=== PATIENT | female | born 2000 | race Caucasian/White ===

== ENCOUNTER 2023-10-25 18:16 | Emergency (ER) | payer OTHER, SELFPAY ==
--- NOTE | ~2023-10-25 | XR_ITS ---
EXAMINATION: XR chest 2V Exam Date/Time: 10/25/2023 20:45 DOCK OPERATOR HISTORY: cough, eval for PNA Comparison: None. RESULT: Lines, tubes, and devices: None. Lungs and pleura: Clear. Cardiomediastinal silhouette: Normal. Other: No acute osseous or upper abdominal finding. IMPRESSION: No acute cardiopulmonary process. Reviewed, dictated and finalized at location K. OPERATOR
[2023-10-25 18:47] VITALS: BP 122/91; PULSE 105; RESP 20; TEMP 38.4; O2SAT 100
[2023-10-25 20:04] VITALS: TEMP 38.2
--- NOTE | 2023-10-25 20:18 | PC.NURSE ---
called lab to check the status of PCR test. refrigeration service technician states it errored out, ill put it back on, it will be 30-45 mins
--- NOTE | 2023-10-25 20:42 | ED.URI ---
HPI - URI/Sore Throat General Chief Complaint: Upper Respiratory Infection Stated Complaint: sick for 2 weeks Time Seen by Provider: 10/25/23 20:14 History of Present Illness HPI Narrative: 23-year-old female presenting with URI symptoms. Patient states that for last 2 weeks she has had sore throat, cough, body aches. She was seen at urgent care about 2 weeks ago and given a Z-Blake. She finished this and her throat improved. She continues to have a sore throat and body aches. States she has been intermittently nauseated with vomiting. States that she has chest pain with coughing. No shortness of breath or abdominal pain. No leg swelling. Has been using Tylenol with temporary relief. Related Data Allergies Allergy/AdvReac Type Severity Reaction Status Date / Time No Known Allergies Allergy Unverified 10/25/23 18:16 Review of Systems Review of Systems: All systems reviewed & are unremarkable except as noted in HPI and below Exam Narrative: GENERAL: Well-appearing, in no acute distress, pleasant cooperative HEAD: Normocephalic, atraumatic. EYES: PERRLA and EOMI. ENT: Mucous membranes moist. no pharyngeal edema, erythema, or exudates NECK: Supple. CHEST: Clear to auscultation. No respiratory distress. HEART: tachycardic, regular rhythm ABDOMEN: Soft, nontender, nondistended EXTREMITIES: Normal range of motion. SKIN: Warm, dry, no rash. NEURO: No focal deficits. Alert and oriented x3. PSYCH: Normal mood and affect. Course Vital Signs Vital signs: Vital Signs Temperature 101.1 F H 10/25/23 18:47 Pulse Rate 105 H 10/25/23 18:47 Respiratory Rate 20 10/25/23 18:47 Blood Pressure 122/91 H 10/25/23 18:47 Pulse Oximetry 100 10/25/23 18:47 Oxygen Delivery Room Air 10/25/23 18:47 Temperature 100.8 F H 10/25/23 20:04 Pulse Rate 98 10/25/23 23:09 Respiratory Rate 18 10/25/23 23:09 Blood Pressure 91/53 L 10/25/23 23:09 Pulse Oximetry 100 10/25/23 23:09 Oxygen Delivery Room Air 10/25/23 23:07 MDM - URI/Sore Throat MDM Narrative Medical decision making narrative: 23-year-old female presenting with URI symptoms. Patient is slightly tachycardic and febrile on arrival. positive for influenza A. Chest x-ray without acute abnormalities. UA is concerning for UTI. Will treat with Keflex. Discussed appropriate supportive care. Advised PCP follow-up. Appropriate return precautions given. Patient discharged in stable condition. Differential Diagnosis Differential diagnosis: Likely upper respiratory infection, viral infection and influenza Medical Records Attestation: I reviewed the patient's medical records. Lab Data Attestation: I reviewed the patient's lab results. Labs: Lab Results 10/25/23 10/25/23 Range/Units 18:52 21:03 Urine Color Yellow (Yellow) Urine Appearance Clear (Clear) Urine pH 6.0 (5.0-9.0) Ur Specific [place] >= 1.030 (1.001-1.035) Urine Protein Negative (Negative) mg/dL Urine Glucose (UA) Negative (Negative) mg/dL Urine Ketones Negative (Negative) mg/dL Ur Blood (Man) 1+ H (Negative) Urine Nitrate Positive H (Negative) Urine Bilirubin Negative (Negative) Urine Urobilinogen 0.2 (<2.0) mg/dL Leukocyte Esterase Rfl Negative (Negative) [place]/UL Urine RBC 3-5 H (0-2) /hpf Urine WBC 0-3 (0-3) /hpf Ur Squamous Epith Cells Moderate H (Few) /hpf Calcium Oxalate Crystal Present H (None) /hpf Urine Bacteria 3+ H (None) /hpf Urine Mucus Few H /lpf Influenza A (RT-PCR) Positive A (Negative) Influenza B (RT-PCR) Negative (Negative) RSV (RT-PCR) Negative (Negative) SARS-CoV-2 RNA (RT-PCR) Negative (Negative) Imaging Data Radiologist's impression: ITS Impressions Chest X-Ray 10/25/23 20:59 IMPRESSION: No acute cardiopulmonary process. Critical Care Time Critical Care Time Critical Care Time: No Discharge Plan Discharge
[2023-10-25 20:56] LABS: Influenza A QL RT-PCR Positive (Negative); Influenza B QL RT-PCR Negative (Negative); RSV RNA, RT-PCR Negative (Negative); SARS-CoV-2 RNA PCR Negative (Negative)
[2023-10-25] MEDS: ONDANSETRON HCL ODT 4 MG TABLET PO (20:56)
[2023-10-25] MEDS: KETOROLAC 30 MG/ML VIAL (*BKC) IM (20:56)
[2023-10-25 22:04] LABS: Add Urine Microscopic? YES
[2023-10-25 22:05] LABS: Calcium Oxalate Crystals Urine Present /hpf
[2023-10-25 22:06] LABS: Bacteria Urine 3+ /hpf; Mucus Urine Few /lpf; Squamous Epithelial Cell Urine Moderate /hpf (Few)
[2023-10-25 22:07] LABS: Appearance Urine Clear (Clear); Color Urine Yellow (Yellow); WBC Urine 0-3 /hpf (0-3)
[2023-10-25 22:08] LABS: Bilirubin Urine Negative (Negative); Blood Urine 1+ (Negative); Glucose Urine UA Negative (Negative); Ketones Urine Negative (Negative); Nitrate Urine Positive (Negative); Protein Urine Negative (Negative); Specific Grav Ur >= 1.030 (1.001-1.035); Urobilinogen Urine 0.2 mg/dL (<2.0)
[2023-10-25 22:09] LABS: Leukocyte Esterase Ur Negative LEU/UL (Negative)
[2023-10-25] MEDS: CEPHALEXIN 500 MG CAPSULE PO (22:18)
[2023-10-25 23:07] VITALS: O2SAT 100
[2023-10-25 23:09] VITALS: BP 91/53; PULSE 98; RESP 18; O2SAT 100
== END 2023-10-25 23:11 | disposition home or self-care (01) ==
PROVIDERS: Emergency Provider Emergency Medicine
DX: J10.1 Influenza due to other identified influenza virus with other respiratory manifestations (principal); N39.0 Urinary tract infection, site not specified; Z20.822 Contact with and (suspected) exposure to COVID-19
CPT/HCPCS: 71046; 81001; 87637; 96372; 99283; A9270; J1885

== ENCOUNTER 2024-12-20 15:05 | Outpatient (CLI) | payer MEDICAID, SELFPAY ==
[2024-12-20 15:33] LABS: Basophils Percent Auto 0.2 % (0.2-1.2); Eosinophils Absolute Auto 0.1 K/mm3 (0-0.3); Eosinophils Percent Auto 0.6 % (0-4.4); Hematocrit 39.2 % (37.0-47.0); Hemoglobin 12.6 g/dL (12.0-15.0); Immature Granulocyte Absolute 0.06 K/mm3 (0.00-0.031); Immature Granulocyte Percent A 0.4 % (0-0.5); Lymphocytes Absolute Auto 1.37 K/mm3 (0.9-3.2); Mean Corpuscular HGB Conc 32.1 g/dl (32-36); Mean Corpuscular Hemoglobin 28.3 pg (26-34); Mean Corpuscular Volume 87.9 fl (80-100); Mean Platelet Volume 9.8 fl (7.4-10.4); Monocytes Absolute Auto 0.8 K/mm3 (0.1-0.6); Neutrophils Absolute Auto 11.3 K/mm3 (1.3-6.7); Neutrophils Percent Auto 82.8 % (45.5-73.1); Platelet Count Result 385 k/mm3 (150-375); Red Blood Count 4.46 M/mm3 (4.2-5.4); Red Cell Distribution Width 13.2 % (11.5-14.5); White Blood Count 13.7 K/mm3 (4.5-10.0)
--- OUTSIDE RECORDS SUMMARY | 2024-12-20 16:19 | XMS_ITS | Clinical Summary ---
Author Organization [facility] Address [address] [place] [id number] Care Team Providers Care Senior Receptionist Name Role Phone None, Provider MD Primary Care Provider Unavaila ble Allergies No known active allergies Medications No known medications Encounters Date Type Department Care Team Description 12/18/2024 12:11 AM STONE RUBBER - 12/18/2024 2:59 AM STONE RUBBER Emergency [facility] [place] [address] Flako Haynes MD,PHD Abdominal Pain Discharge Disposition: Home or Self Care (Routine Discharge) 12/17/2024 Travel from Last 3 Months Social History Tobacco Use Types Packs/Day Years Used Date Smoking Tobacco: Never Assessed Comments Yes Sex and Gender Information Value Date Recorded Sex Assigned at Female 12/17/2024 11:45 PM STONE RUBBER Legal Sex Female 11:35 PM STONE RUBBER Gender Identity Not on file Sexual Orientation Not on file Last Filed Vital Signs Vital Sign Reading Time Taken Comments Blood Pressure 136/88 12/18/2024 2:58 AM STONE RUBBER Pulse 115 12/18/2024 2:58 AM STONE RUBBER Temperature 36.9 C (98.5 F) 12/17/2024 11:39 PM STONE RUBBER Respiratory Rate 17 12/18/2024 2:58 AM STONE RUBBER Oxygen Saturation 97% 12/18/2024 2:58 AM STONE RUBBER Inhaled Oxygen Concentration - - Weight 54.9 kg (121 lb 0.5 oz) 12/17/2024 11:39 PM STONE RUBBER Height 160 cm (5' 3 ) 12/17/2024 11:39 PM STONE RUBBER Body Mass Index 21.44 12/17/2024 11:39 PM STONE RUBBER Plan of Treatment Health Maintenance Due Date Last Done Comments Annual Physical 2001 HPV Vaccines (1 - 3-dose series) 2013 Hepatitis C 2016 DTaP, Tdap and Td Vaccines ( 1 - Tdap) 2017 Hepatitis B Vaccines (1 of 3 - 19+ 3-dose series) 2017 COVID-19 Vaccine ( - 2023-2 5 season) 2024 Influenza Adult (#1) 2024 Cervical Cancer Screening Pa p Smear (Age 21 to 29) Every 3 Years 06/28/2025 06/28/2022 Cervical Cancer Screening 06/28/2025 RSV Immunization or 60+ Years (1 - 1-dose 75+ series) 2073 Meningococcal B Vaccine Aged Out No l onger eligible based on patient's age to complete this topic Meningococcal Vaccine Aged Out No viki quang eligible based on patient's age to complete this topic Pneumococcal Vaccine: Pediat rics (0 to 5 Years) and At-Risk Patients (6 to 64 Years) Aged Out No longer eligi ble based on patient's age to complete this topic RSV Immunizations Under 20 Months Aged Out No longer eligible based on patient's age to complete this topic Procedures Procedure Name Priority Date/Time Associated Diagnosis Comments US OB TRANSVAG STAT 12/18/2024 1:59 AM STONE RUBBER POCT URINE (BACK OFFICE) STAT 12/18/2024 12:43 AM STONE RUBBER HC URINALYSIS AUTO W/O MICRO STAT 12/18/2024 12:35 AM STONE RUBBER HCG QUANT (SERUM)-CHORIONIC GONADOTROPIN STAT 12/18/2024 12:28 AM STONE RUBBER COMPREHENSIVE METABOLIC PANEL STAT 12/18/2024 12:28 AM STONE RUBBER CBC W/DIFF AUTOMATED STAT 12/18/2024 12:28 AM STONE RUBBER TYPE & SCREEN STAT 12/18/2024 12:27 AM STONE RUBBER from Last 3 Months Results * US OB TRANSVAG (12/18/2024 1:59 AM STONE RUBBER) Anatomical Region Laterality Modality Abdomen, Pelvis Ultrasound 12/18/2024 2:23 AM STONE RUBBER Impressions 12/18/2024 2:24 AM STONE RUBBER IMPRESSION: 1. Single living intrauterine gestation at gestational age of 7 weeks 0 days and EDC of 06 Aug 2025. 2. Probable moderate volume subchorionic hemorrhage. Referred By: Interpreted By: Galen Gonzales MD, 12/18/2024 2:23 AM Narrative 12/18/2024 2:[address] STONE RUBB[address] [address] EXAM: Early OB (<14 weeks) sonography INDICATION: Sudden onset pelvic pain COMPARISON: None LMP: 31 Oct 2024. Quantitative Beta-hC,019. FINDINGS: Layton scale and color Doppler transpelvic and transvaginal sonography was performed and demonstrates a gravid uterus measuring 8.6 x 5.2 x 6.7 cm. The uterus contains a typical appearing gestational sac with definable embryonic pole. Spontaneous heart rate of 136 beats per minute is demonstrated. Anechoic regions adjacent to the gestational sac compatible with moderate volume subchorionic hemorrhage. A yolk sac is visualized and measures 0.3 cm in diameter. [place] rump length measures 0.9 cm, correlating with gestational age of 7 weeks 0 days and EDC of 06 Aug 2025. Ovaries are normal in size measuring 4.1 x 2.4 x 3.2 cm on the right and 3.8 x 1.4 x 1.9 cm on the left. Probable corpus luteum in the right ovary. 1.9 cm isoechoic focus in the right adnexa with low-level internal echoes and mild through transmission, compatible with an endometrioma. Ovarian arterial flow is within normal limits. Small volume free fluid in the pelvic cul-de-sac. Procedure Note Galen Gonzales MD - 12/18/[address] [address] EXAM: Early OB (<14 weeks) sonography INDICATION: Sudden onset pelvic pain COMPARISON: None LMP: 31 Oct 2024. Quantitative Beta-hC,019. FINDINGS: Layton scale and color Doppler transpelvic and transvaginal sonography wasperformed and demonstrates a gravid uterus measuring 8.6 x 5.2 x 6.7 cm.The uterus contains a typical appearing gestational sac with definableembryonic pole. Spontaneous heart rate of 136 beats per minute isdemonstrated. Anechoic regions adjacent to the gestational sac compatiblewith moderate volume subchorionic hemorrhage. A yolk sac is visualized and measures 0.3 cm in diameter. [place] rump length measures 0.9 cm, correlating with gestational age of 7weeks 0 days and EDC of 06 Aug 2025. Ovaries are normal in size measuring 4.1 x 2.4 x 3.2 cm on the right and3.8 x 1.4 x 1.9 cm on the left. Probable corpus luteum in the right ovary.1.9 cm isoechoic focus in the right adnexa with low-level internal echoesand mild through transmission, compatible with an endometrioma. Ovarianarterial flow is within normal limits. Small volume free fluid in thepelvic cul-de-sac. IMPRESSION: 1. Single living intrauterine gestation at gestational age of 7 weeks 0days and EDC of 06 Aug 2025. 2. Probable moderate volume subchorionic hemorrhage. Referred By: Interpreted By: Galen Gonzales MD, 12/18/2024 2:23 AM Flako Haynes MD,PHD ULTRASOUND Final Resu lt * (ABNORMAL) POCT urine (12/18/2024 12:43 AM STONE RUBBER) URINE HCG TEST POSITIVE(A ) Internal Control: VALID us Edison Joseph PA-C POINT OF CARE TEST ORDERABL ES Final Result * (ABNORMAL) URINALYSIS (12/18/2024 12:35 AM STONE RUBBER) SPECIMEN TYPE URINE CLEAN CATCH 12/18/2024 12:28 AM STONE RUBBER [facility] COLOR (U) LIGHT YELLOW 12/18/2024 1:[address] [facility] TRANSPARENCY TURBID 12/18/2024 1:[address] [facility] SPECIFIC GRAVITY (U) 1.019 1.001 - 1.030 12/18/2024 1:[address] [facility] U PH 6.0 5.0 - 9.0 12/18/2024 1:[address] [facility] LEUKOCYTES (U) NEGATIVE NEGATIVE 12/18/2024 1:[address] [facility] NITRITES NEGATIVE NEGATIVE 12/18/2024 1:[address] [facility] PROTEIN RANDOM (U) NEGATIVE <30 MG/DL 12/18/2024 1:[address] [facility] GLUCOSE (U) NORMAL NORMAL MG/DL 12/18/2024 1:[address] [facility] KETONES MG/DL (U) TRACE(A) NEGATIVE MG/DL 12/18/2024 1:[address] [facility] UROBILINOGEN NORMAL NORMAL MG/DL 12/18/2024 1:[address] [facility] BILIRUBIN (U) NEGATIVE NEGATIVE MG/DL 12/18/2024 1:[address] [facility] BLOOD (U) NEGATIVE NEGATIVE 12/18/2024 1:[address] [facility] URINE SPECIMEN OBTAINED BY CLEAN CATCH PROCEDURE / Unknown 12/18/2024 12:35 AM STONE RUBBER us Edison Joseph PA-C URINE ORDERABLES Final Resu lt [facility] [address] [place] [address], [place] [phone] * (ABNORMAL) COMPREHENSIVE METABOLIC PANEL (12/18/2024 12:28 AM [facility]) [facility] GLUCOSE 95 70 - 99 MG/DL 12/18/2024 1:[address] [facility] BUN 9 7 - 18 MG/DL 12/18/2024 1:[address] [facility] CREATININE S/P/B 0.57 0.55 - 1.02 MG/DL 12/18/2024 1:[address] [facility] SODIUM S/P/B 136 136 - 145 MMOL/L 12/18/2024 1:[address] [facility] POTASSIUM S/P/B 3.5 3.5 - 5.1 MMOL/L 12/18/2024 1:[address] [facility] CHLORIDE S/P/B 105 97 - 115 MMOL/L 12/18/2024 1:[address] [facility] CO2 23.1 21 - 32 MMOL/L 12/18/2024 1:[address] [facility] CALCIUM S/P/B 9.5 8.5 - 10.1 MG/DL 12/18/2024 1:[address] [facility] BILIRUBIN TOTAL S/P/B 0.6 0.2 - 1.2 MG/DL 12/18/2024 1:[address] [facility] Comment: THIS ASSAY IS NOT RECOMMENDED FOR PATIENTS UNDERGOING TREATMENT WITH ELTROMBOPAG DUE TO THE POTENTIAL FOR FALSELY ELEVATED RESULTS. TOTAL PROTEIN S/P/B 7.4 6.4 - 8.2 G/DL 12/18/2024 1:[address] [facility] ALBUMIN S/P/B 4.1 3.4 - 5.0 G/DL 12/18/2024 1:[address] [facility] AST 9(L) 15 - 37 U/L 12/18/2024 1:[address] [facility] ALT 12(L) 14 - 55 U/L 12/18/2024 1:[address] [facility] ALKALINE PHOSPHATASE S/P/B 64 50 - 136 U/L 12/18/2024 1:[address] [facility] ANION GAP 7.9 2 - 10 MMOL/L 12/18/2024 1:[address] [facility] BUN CREATININE RATIO 15.7 6 - 26 12/18/2024 1:[address] [facility] A/G RATIO 1.2 1.0 - 2.0 RATIO 12/18/2024 1:[address] [facility] GFR ESTIMATE >90 >90 ML/MIN/1.7 3 M2 12/18/2024 1:[address] [facility] Comment: NOTE: eGFR is not calculated for patients <18 years of age or gender unknown. This is an estimated GFR calculation using the new CKD EPI creatinine equation without race and so does not require a correction factor for race. This estimated GFR should not be used for calculating drug doses. 12/18/2024 12:2 8 AM STONE RUBBER Edison Joseph PA-C LABORATORY Final Resul t [facility] [address] [place] [address], * HCG QUANT (SERUM)-CHORIONIC GONADOTROPIN (12/18/2024 12:28 AM STONE RUBBER) Pathologist [facility] [place] HCG QUANTITATIVE 54,019 MIU/ML 12/19/19 1:[address] [facility] Comment: WEEKS OF REFERENCE RANGES Non- female < or = 2 0.2 - 1 5 - 50 1 - 2 50 - 500 2 - 3 100 - 5000 3 - 4 500 - 10,000 4 - 5 1000 - 50,000 5 - 6 10,000 - 100,000 6 - 8 15,000 - 200,000 2 - 3 MONTHS 10,000 - 100,000 12/18/2024 12:2 8 AM STONE RUBBER Edison Joseph PA-C LABORATORY Final Resul t [facility] [address] [place] [address], * (ABNORMAL) CBC W/DIFF AUTOMATED (12/18/2024 12:28 AM STONE RUBBER) WBC 11.56(H) 4.5 - 11.0 x10'3/uL 12/18/2024 1:18 AM STONE RUBBER [facility] RBC 4.55 4.20 - 5.40 x10'6/uL 12/18/2024 1:18 AM STONE RUBBER [facility] HGB 12.8 12.0 - 16.0 G/DL 12/18/2024 1:18 AM STONE RUBBER [facility] HCT 38.9 38.0 - 48.0 % 12/18/2024 1:[address] [facility] MCV 85.5 81.0 - 99.0 FL 12/18/2024 1:18 AM STONE RUBBER [facility] MCH 28.1 27.0 - 31.0 PG 12/18/2024 1:18 AM STONE RUBBER [facility] MCHC 32.9 32.0 - 36.0 G/DL 12/18/2024 1:18 AM STONE RUBBER [facility] RDW 13.2 11.5 - 14.5 % 12/18/2024 1:[address] [facility] PLT 426(H) 130 - 400 x10'3/uL 12/18/2024 1:18 AM STONE RUBBER [facility] MPV 10.2 9.3 - 12.2 FL 12/18/2024 1:[address] [facility] DIFFERENTIAL TYPE AUTOMATED DIFFERENTIAL 12/18/2024 1:[address] [facility] NEUTROPHILS % 68.8 % 12/18/2024 1:[address] [facility] LYMPHOCYTES % 20.8 % 12/18/2024 1:[address] [facility] MONOCYTES % 8.5 % 12/18/2024 1:[address] [facility] EOSINOPHILS 1.3 % 12/18/2024 1:[address] [facility] BASOPHILS 0.3 % 12/18/2024 1:[address] [facility] IMMATURE GRANS % 0.3 % 12/19/19 1:[address] [facility] ABS. NEUTROPHILS 7.95(H) 1.80 - 7.70 x10'3/uL 12/18/2024 1:[address] [facility] ABS. LYMPHOCYTES 2.41 1.00 - 4.80 x10'3/uL 12/18/2024 1:[address] [facility] ABS. MONOCYTES 0.98(H) 0.24 - 0.86 x10'3/uL 12/18/2024 1:[address] [facility] ABS. EOSINOPHILS 0.15 0.04 - 0.36 x10'3/uL 12/18/2024 1:[address] [facility] ABS. BASOPHILS 0.03 0.01 - 0.08 x10'3/uL 12/18/2024 1:[address] [facility] ABS. IMMATURE GRANULOCYTES 0.04 0.00 - 0.49 x10'3/uL 12/18/2024 1:[address] [facility] 12/18/2024 12:2 8 AM STONE RUBBER Edison Joseph PA-C LABORATORY Final Resul t [facility] [address] [place] [address], [place] [phone] * TYPE & SCREEN (12/18/2024 12:27 AM STONE RUBBER) ABO/RH O POSITIVE 12/18/2024 1:29 AM STONE RUBBER [facility] ANTIBODY SCREEN NEGATIVE 12/18/2024 1:29 AM STONE RUBBER [facility] SAMPLE EXPIRATION 12/21/2024,2 359 12/18/2024 1:29 AM STONE RUBBER [facility] 12/18/2024 12:2 7 AM STONE RUBBER Flako Haynes MD,PHD BLOOD BANK TEST ORDERABLES Final Result [facility] [address] [place] [address], [place] [phone] from Last 3 Months Insurance MEDICAID Care Teams Senior Receptionist Relationship Specialty Start Date End Date None, Provider, MD PCP - General UNKNOWN PHYSICIAN SPECIALTY 12/18/24
--- OUTSIDE RECORDS SUMMARY | 2024-12-20 16:19 | XMS_ITS | Clinical Summary ---
Author Organization [facility] Address [address] [place] [address] Care Team Providers Care Development Officer Name Role Phone Unavailable Primary Care Provider Unavailabl e Allergies No known active allergies Medications amoxicillin-clav ulanate (AUGMENTIN) 875-125 mg tablet Take 1 Tablet by mouth every 12 hours. 14 Tablet 03/20/2021 Active ibuprofen (MOTRIN) 600 mg tablet Take 1 Tablet (600 mg) by mouth every 8 hours as needed for Pain, Mild. 20 Tablet 06/28/2022 Active phenazopyridine 200 mg tablet Take 1 Tablet (200 mg) by mouth 3 times daily as needed for Pain. 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 Encounters Date Type Department Care Team Description 12/05/2024 External Device Data [facility] ABSTRACTION Provider, Abstract 11/08/2024 External Device Data [facility] ABSTRACTION Provider, Abstract from Last 3 Months Social History Tobacco Use Types Packs/Day Years Used Date Smoking Tobacco: Never Tobacco Cessation:Counseling Given: Not Answered Alcohol Use Standard Drinks/Week Comments Yes 0 (1 standard drink = 0.6 oz pur e alcohol) Comments No Sex and Gender Information Value Date Recorded Sex Assigned at Not on file Legal Sex Female 10:16 AM CDT Gender Identity Not on file Sexual Orientation Not on file Last Filed Vital Signs Vital Sign Reading Time Taken Comments Blood Pressure 113/77 06/21/2024 7:44 PM CDT Pulse 82 06/21/2024 7:44 PM CDT Temperature 36.8 C (98.2 F) 06/21/2024 7:44 PM CDT Respiratory Rate 18 06/21/2024 7:44 PM CDT Oxygen Saturation 98% 06/21/2024 7:44 PM CDT Inhaled Oxygen Concentration - - Weight 57.2 kg (126 lb) 06/21/2024 7:44 PM CDT Height 160 cm (5' 3 ) 06/21/2024 7:44 PM CDT Body Mass Index 22.32 06/21/2024 7:44 PM CDT Plan of Treatment Health Maintenance Due Date Last Done Comments HPV VACCINES (1 - 3-dose series) 2013 DTAP/TDAP/TD VACCINES (1 - Tdap) 2017 HEPATITIS B VACCINES (1 of 3 - 19+ 3-dose series) 11/2016 CERVICAL CANCER SCREENING 2019 INFLUENZA VACCINE (#1) 2024 CHLAMYDIA SCREENING (ANNUAL) 11-24 YEARS Discontinued 06/28/2022 Procedures Procedure Name Priority Date/Time Associated Diagnosis Comments GC/CHLAMYDIA, UROGENITAL Stat 06/28/2022 12:06 PM CDT from Last 3 Months or Most Recently Relevant to Health Maintenance Results * GC/CHLAMYDIA, UROGENITAL (06/28/2022 12:06 PM CDT) CHLAMYDIA DNA AMPLIFICATION NOT DETECTED Not Detected 06/30/2022 11:46 AM CDT [facility] GC DNA AMPLIFICATION NOT DETECTED Not Detected 06/30/2022 11:46 AM CDT [facility] Genital SWAB OF ENDOCERVIX / Unknown Collection / Unknown 06/28/2022 12:06 PM CDT 06/28/2022 12:15 PM CDT Narrative [facility] - 06/30/2022 11:46 AM CDT Results should not be used for the evaluation of suspected sexual abuse or for other medico-legal indications. The only legally accepted results are from culture. Results cannot be used to assess therapeutic success or failure since nucleic acids may persist following antimicrobial therapy. Mali Leal MD MICROBIOLOGY - GENERAL ORDERABL ES Final Result [facility]# [id number] [address] [place] [id number] from Last 3 Months or Most Recently Relevant to Health Maintenance Insurance [email or web address] [id number]
--- OUTSIDE RECORDS SUMMARY | 2024-12-20 16:19 | XMS_ITS | Clinical Summary ---
Author Organization [facility] Address [address] [place] [address] Care Team Providers Care Nurses' Registry Director Name Role Phone Unknown, Notinfile Primary Care Provider Unavail able Allergies No known active allergies Medications No known medications Active Problems Problem Noted Date Diagnosed Date Calculus of kidney 01/24/2014 Social History Tobacco Use Types Packs/Day Years Used Date Smoking Tobacco: Never Assessed Personal Safety Answer Date Recorded Getting School Help Needed Not on file 04/23 Comments Unknown Sex and Gender Information Value Date Recorded Sex Assigned at Not on file Legal Sex Female 9:54 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 Gender Identity Not on file Sexual Orientation Not on file Last Filed Vital Signs Vital Sign Reading Time Taken Comments Blood Pressure 135/86 04/23/2023 5:50 PM CDT Pulse 89 04/23/2023 5:50 PM CDT Temperature 37.2 C (99 F) 04/23/2023 4:07 PM CDT Respiratory Rate 16 04/23/2023 5:50 PM CDT Oxygen Saturation 98% 04/23/2023 5:50 PM CDT Inhaled Oxygen Concentration - - Weight 57.2 kg (126 lb) 04/23/2023 4:07 PM CDT Height 160 cm (5' 3 ) 04/23/2023 4:07 PM CDT Body Mass Index 22.32 04/23/2023 4:07 PM CDT Plan of Treatment Health Maintenance Due Date Last Done Comments Cervical Cancer Screening 1998 Depression Screening 1998 Hepatitis C Screening 1998 Regular Well Visit/Exam 18-64 2016 DTaP/Tdap/Td Vaccine (7 - Td or Tdap) 12/26/2021 12/27/2011, 06/08/2009, 02/02/2000, Additional history exists Influenza Vaccine (#1) 2024 4, 12/06/2013, 07/13/2011 Hepatitis B Screening Completed 05/06/1999 , 1998, 1998 Pneumococcal vaccine <65 Completed 09/16/2000 Varicella Vaccines Completed 02/09/2010, 12/03/1999 HPV Vaccines Completed 12/27/2011, 06/18, 02/09/2010 Insurance [facility] [employer] [facility] [employer] Care Teams Nurses' Registry Director Relationship Specialty Start Date End Date Unknown, Notinfile PCP - General 04/12/22
--- OUTSIDE RECORDS SUMMARY | 2024-12-20 16:19 | XMS_ITS | Referral Summary ---
Author Organization [facility] Address [address] [place] [address] Care Team Providers Care Senior Hydrogeologist Name Role Phone Unknown, Notinfile Primary Care [...] on file Legal Sex Female 9:54 AM ASSISTANT PROFESSOR IN FAMILY STUDIES Gender Identity Not on file Sexual Orientation [...] 04/23/2023 4:07 PM CDT Plan of Treatment Not on file Insurance [facility] PLUS [facility] PL[facility] Care Teams Senior Hydrogeologist Relationship Specialty Start Date End Date Unknown, Notinfile PCP - General 04/12/22
[2024-12-20 16:34] LABS: HIV 1/2 Ab P24 Ag Result Negative (Negative)
[2024-12-20 17:19] LABS: Syphilis IgG/IgM Antibody Negative (Negative)
[2024-12-20 17:23] LABS: Hepatitis B Surface Antigen Negative (Negative)
[2024-12-21 12:28] LABS: Varicella IgG Antibody <1.00 S/CO
== END 2024-12-20 15:06 | disposition home or self-care (01) ==
LOC: ANHLAB 15:06
PROVIDERS: Visit Provider Student in an Organized Health Care Education/Training Program
DX: N91.2 Amenorrhea, unspecified (principal)
CPT/HCPCS: 36415; 81329; 84702; 85025; 86593; 86644; 86703; 86747; 86762; 86787; 86850; 86900; 86901; 87086; 87340; G0432

== ENCOUNTER 2024-12-27 16:12 | Outpatient (CLI) | payer MEDICAID, SELFPAY ==
--- NOTE | ~2024-12-27 | US_ITS ---
Pelvic ultrasound. Clinical History: First trimester , amenorrhea, establish dates and viability Technique: Realtime transvaginal scanning of the pelvis was performed. Color flow Doppler and Doppler spectral analysis were performed. Findings: The uterus is anteverted, and contains an intrauterine gestation. Meno-rump length of 1.9 cm corresponds to an estimated gestational age of 8 weeks 3 days. heart rate is 175 bpm. Yolk s ac also present. The right ovary measures 3.0 x 2.6 x 3.2 cm. No significant right ovarian or adnexal mass is seen. The left ovary measures 3.2 x 1.4 x 1.9 cm. No significant left ovarian or adnexal mass is seen. There is no evidence of free fluid in the cul de sac. Impression: Live intrauterine gestation, with estimated gestational age of 8 weeks 3 days. heart rate is 17 5 bpm. Sonographic MARTHA is 08/05/2025. Reviewed, dictated and finalized at location . Impression: Live intrauterine gestation, with estimated gestational age of 8 weeks 3 days. heart rate is 175 bpm. Sonographic MARTHA is 08/05/2025.
--- OUTSIDE RECORDS SUMMARY | 2024-12-27 17:34 | XMS_ITS | Clinical Summary ---
Author Organization [facility] Address [address] [place] [address] Care Team Providers Care Field Reporter Name Role Phone None, Provider MD Primary Care Provider Unavaila ble Allergies No known active allergies Medications No known medications Encounters Date Type Department Care Team Description 12/18/2024 12:11 AM DUMPER BAILER OPERATOR - 12/18/2024 2:59 AM DUMPER BAILER OPERATOR Emergency [facility] [place] [address] Flako Haynes MD,PHD Abdominal Pain Discharge Disposition: Home or Self Care (Routine Discharge) 12/17/2024 Travel from Last 3 Months Social History Tobacco Use Types Packs/Day Years Used Date Smoking Tobacco: Never Assessed Comments Yes Sex and Gender Information Value Date Recorded Sex Assigned at Female 12/17/2024 11:45 PM DUMPER BAILER OPERATOR Legal Sex Female 11:35 PM DUMPER BAILER OPERATOR Gender Identity Not on file Sexual Orientation Not on file Last Filed Vital Signs Vital Sign Reading Time Taken Comments Blood Pressure 136/88 12/18/2024 2:58 AM DUMPER BAILER OPERATOR Pulse 115 12/18/2024 2:58 AM DUMPER BAILER OPERATOR Temperature 36.9 C (98.5 F) 12/17/2024 11:39 PM DUMPER BAILER OPERATOR Respiratory Rate 17 12/18/2024 2:58 AM DUMPER BAILER OPERATOR Oxygen Saturation 97% 12/18/2024 2:58 AM DUMPER BAILER OPERATOR Inhaled Oxygen Concentration - - Weight 54.9 kg (121 lb 0.5 oz) 12/17/2024 11:39 PM DUMPER BAILER OPERATOR Height 160 cm (5' 3 ) 12/17/2024 11:39 PM DUMPER BAILER OPERATOR Body Mass Index 21.44 12/17/2024 11:39 PM DUMPER BAILER OPERATOR Plan of Treatment Health Maintenance Due Date [...] US OB TRANSVAG STAT 12/18/2024 1:59 AM DUMPER BAILER OPERATOR POCT URINE (BACK OFFICE) STAT 12/18/2024 12:43 AM DUMPER BAILER OPERATOR HC URINALYSIS AUTO W/O MICRO STAT 12/18/2024 12:35 AM DUMPER BAILER OPERATOR HCG QUANT (SERUM)-CHORIONIC GONADOTROPIN STAT 12/18/2024 12:28 AM DUMPER BAILER OPERATOR COMPREHENSIVE METABOLIC PANEL STAT 12/18/2024 12:28 AM DUMPER BAILER OPERATOR CBC W/DIFF AUTOMATED STAT 12/18/2024 12:28 AM DUMPER BAILER OPERATOR TYPE & SCREEN STAT 12/18/2024 12:27 AM DUMPER BAILER OPERATOR from Last 3 Months Results * US OB TRANSVAG (12/18/2024 1:59 AM DUMPER BAILER OPERATOR) Anatomical Region Laterality Modality Abdomen, Pelvis Ultrasound 12/18/2024 2:23 AM DUMPER BAILER OPERATOR Impressions 12/18/2024 2:24 AM DUMPER BAILER OPERATOR IMPRESSION: 1. Single living intrauterine gestation at gestational age of 7 weeks 0 days and EDC of 06 Aug 2025. 2. Probable moderate volume subchorionic hemorrhage. Referred By: Interpreted By: Galen Gonzales MD, 12/18/2024 2:23 AM Narrative 12/18/2024 2:24 AM DUMPER BAILER OPERATOR [address] [address] EXAM: Early OB (<14 weeks) sonography INDICATION: [...] visualized and measures 0.3 cm in diameter. [place] rump length measures 0.9 cm, correlating with [...] Procedure Note Galen Gonzales MD - 12/18/[address] [address] EXAM: Early OB (<14 weeks) sonography INDICATION: [...] visualized and measures 0.3 cm in diameter. [place] rump length measures 0.9 cm, correlating with [...] * (ABNORMAL) POCT urine (12/18/2024 12:43 AM DUMPER BAILER OPERATOR) URINE HCG TEST POSITIVE(A ) Internal Control: VALID us Edison Joseph PA-C POINT OF CARE TEST ORDERABL ES Final Result * (ABNORMAL) URINALYSIS (12/18/2024 12:35 AM DUMPER BAILER OPERATOR) SPECIMEN TYPE URINE CLEAN CATCH 12/18/2024 12:28 AM DUMPER BAILER OPERATOR [facility] COLOR (U) LIGHT YELLOW 12/18/2024 1:09 AM [facility] TRANSPARENCY TURBID 12/18/2024 1:09 AM [facility] SPECIFIC GRAVITY (U) 1.019 1.001 - 1.030 12/18/2024 1:09 AM [facility] U PH 6.0 5.0 - 9.0 12/18/2024 1:09 AM [facility] LEUKOCYTES (U) NEGATIVE NEGATIVE 12/18/2024 1:09 AM [facility] NITRITES NEGATIVE NEGATIVE 12/18/2024 1:09 AM [facility] PROTEIN RANDOM (U) NEGATIVE <30 MG/DL 12/18/2024 1:09 AM [facility] GLUCOSE (U) NORMAL NORMAL MG/DL 12/18/2024 1:09 AM [facility] KETONES MG/DL (U) TRACE(A) NEGATIVE MG/DL 12/18/2024 1:09 AM [facility] UROBILINOGEN NORMAL NORMAL MG/DL 12/18/2024 1:09 AM [facility] BILIRUBIN (U) NEGATIVE NEGATIVE MG/DL 12/18/2024 1:09 AM [facility] BLOOD (U) NEGATIVE NEGATIVE 12/18/2024 1:09 AM [facility] URINE SPECIMEN OBTAINED BY CLEAN CATCH PROCEDURE / Unknown 12/18/2024 12:35 AM DUMPER BAILER OPERATOR us Edison Joseph PA-C URINE ORDERABLES Final Resu lt [facility] [address] [place] [address], [place] [phone] * (ABNORMAL) COMPREHENSIVE METABOLIC PANEL (12/18/2024 12:28 AM [facility] GLUCOSE 95 70 - 99 MG/DL 12/18/2024 1:27 AM [facility] BUN 9 7 - 18 MG/DL 12/18/2024 1:27 AM [facility] CREATININE S/P/B 0.57 0.55 - 1.02 MG/DL 12/18/2024 1:27 AM [facility] SODIUM S/P/B 136 136 - 145 MMOL/L 12/18/2024 1:27 AM [facility] POTASSIUM S/P/B 3.5 3.5 - 5.1 MMOL/L 12/18/2024 1:27 AM [facility] CHLORIDE S/P/B 105 97 - 115 MMOL/L 12/18/2024 1:27 AM [facility] CO2 23.1 21 - 32 MMOL/L 12/18/2024 1:27 AM [facility] CALCIUM S/P/B 9.5 8.5 - 10.1 MG/DL 12/18/2024 1:27 AM [facility] BILIRUBIN TOTAL S/P/B 0.6 0.2 - 1.2 MG/DL 12/18/2024 1:27 AM [facility] Comment: THIS ASSAY IS NOT RECOMMENDED FOR PATIENTS UNDERGOING TREATMENT WITH ELTROMBOPAG DUE TO THE POTENTIAL FOR FALSELY ELEVATED RESULTS. TOTAL PROTEIN S/P/B 7.4 6.4 - 8.2 G/DL 12/18/2024 1:27 AM [facility] ALBUMIN S/P/B 4.1 3.4 - 5.0 G/DL 12/18/2024 1:27 AM [facility] AST 9(L) 15 - 37 U/L 12/18/2024 1:27 AM [facility] ALT 12(L) 14 - 55 U/L 12/18/2024 1:27 AM [facility] ALKALINE PHOSPHATASE S/P/B 64 50 - 136 U/L 12/18/2024 1:27 AM [facility] ANION GAP 7.9 2 - 10 MMOL/L 12/18/2024 1:27 AM [facility] BUN CREATININE RATIO 15.7 6 - 26 12/18/2024 1:27 AM [facility] A/G RATIO 1.2 1.0 - 2.0 RATIO 12/18/2024 1:27 AM [facility] GFR ESTIMATE >90 >90 ML/MIN/1.7 3 M2 12/18/2024 1:27 AM [facility] Comment: NOTE: eGFR is not calculated for patients <18 years of age or gender unknown. This is an estimated GFR calculation using the new CKD EPI creatinine equation without race and so does not require a correction factor for race. This estimated GFR should not be used for calculating drug doses. 12/18/2024 12:2 8 AM DUMPER BAILER OPERATOR Edison Joseph PA-C LABORATORY Final Resul t [facility] [address] [place] [address], * HCG QUANT (SERUM)-CHORIONIC GONADOTROPIN (12/18/2024 12:28 AM DUMPER BAILER OPERATOR) Pathologist [facility] HCG QUANTITATIVE 54,019 MIU/ML 12/19/19 1:27 AM [facility] Comment: WEEKS OF REFERENCE RANGES Non- [...] 10,000 - 100,000 12/18/2024 12:2 8 AM DUMPER BAILER OPERATOR Edison Joseph PA-C LABORATORY Final Resul t [facility] [address] [place] [address], * (ABNORMAL) CBC W/DIFF AUTOMATED (12/18/2024 12:28 AM DUMPER BAILER OPERATOR) WBC 11.56(H) 4.5 - 11.0 x10'3/uL 12/18/2024 1:18 AM DUMPER BAILER OPERATOR [facility] RBC 4.55 4.20 - 5.40 x10'6/uL 12/18/2024 1:18 AM DUMPER BAILER OPERATOR [facility] HGB 12.8 12.0 - 16.0 G/DL 12/18/2024 1:18 AM DUMPER BAILER OPERATOR [facility] HCT 38.9 38.0 - 48.0 % 12/18/2024 1:18 AM [facility] MCV 85.5 81.0 - 99.0 FL 12/18/2024 1:18 AM DUMPER BAILER OPERATOR [facility] MCH 28.1 27.0 - 31.0 PG 12/18/2024 1:18 AM DUMPER BAILER OPERATOR [facility] MCHC 32.9 32.0 - 36.0 G/DL 12/18/2024 1:18 AM DUMPER BAILER OPERATOR [facility] RDW 13.2 11.5 - 14.5 % 12/18/2024 1:18 AM [facility] PLT 426(H) 130 - 400 x10'3/uL 12/18/2024 1:18 AM DUMPER BAILER OPERATOR [facility] MPV 10.2 9.3 - 12.2 FL 12/18/2024 1:18 AM [facility] DIFFERENTIAL TYPE AUTOMATED DIFFERENTIAL 12/18/2024 1:18 AM [facility] NEUTROPHILS % 68.8 % 12/18/2024 1:18 AM [facility] LYMPHOCYTES % 20.8 % 12/18/2024 1:18 AM [facility] MONOCYTES % 8.5 % 12/18/2024 1:18 AM [facility] EOSINOPHILS 1.3 % 12/18/2024 1:18 AM [facility] BASOPHILS 0.3 % 12/18/2024 1:18 AM [facility] IMMATURE GRANS % 0.3 % 12/19/19 1:18 AM [facility] ABS. NEUTROPHILS 7.95(H) 1.80 - 7.70 x10'3/uL 12/18/2024 1:18 AM [facility] ABS. LYMPHOCYTES 2.41 1.00 - 4.80 x10'3/uL 12/18/2024 1:18 AM [facility] ABS. MONOCYTES 0.98(H) 0.24 - 0.86 x10'3/uL 12/18/2024 1:18 AM [facility] ABS. EOSINOPHILS 0.15 0.04 - 0.36 x10'3/uL 12/18/2024 1:18 AM [facility] ABS. BASOPHILS 0.03 0.01 - 0.08 x10'3/uL 12/18/2024 1:18 AM [facility] ABS. IMMATURE GRANULOCYTES 0.04 0.00 - 0.49 x10'3/uL 12/18/2024 1:18 AM [facility] 12/18/2024 12:2 8 AM DUMPER BAILER OPERATOR Edison Joseph PA-C LABORATORY Final Resul t [facility] [address] [place] [address], [place] [phone] * TYPE & SCREEN (12/18/2024 12:27 AM DUMPER BAILER OPERATOR) ABO/RH O POSITIVE 12/18/2024 1:29 AM DUMPER BAILER OPERATOR [facility] ANTIBODY SCREEN NEGATIVE 12/18/2024 1:29 AM DUMPER BAILER OPERATOR [facility] SAMPLE EXPIRATION 12/21/2024,2 359 12/18/2024 1:29 AM DUMPER BAILER OPERATOR [facility] 12/18/2024 12:2 7 AM DUMPER BAILER OPERATOR Flako Haynes MD,PHD BLOOD BANK TEST ORDERABLES Final Result [facility] [address] [place] [address], [place] [phone] from Last 3 Months Insurance MEDICAID Care Teams Field Reporter Relationship Specialty Start Date End Date None, Provider, MD PCP - General UNKNOWN PHYSICIAN SPECIALTY 12/18/24
--- OUTSIDE RECORDS SUMMARY | 2024-12-27 17:34 | XMS_ITS | Clinical Summary ---
Author Organization [facility] Address [address] [place] [address] Care Team Providers Care Timber Treating Tank Operator Name Role Phone Unavailable Primary Care Provider [...] Encounters Date Type Department Care Team Description 12/25/2024 External Device Data STL ABSTRACTION Provider, Abstract 12/25/2024 External Device Data STL ABSTRACTION Provider, Abstract 12/05/2024 External Device Data STL ABSTRACTION Provider, [...] DETECTED Not Detected 06/30/2022 11:46 AM CDT [facility] [employer] [facility] GC DNA AMPLIFICATION NOT DETECTED Not Detected 06/30/2022 11:46 AM CDT [facility] Genital SWAB OF ENDOCERVIX / Unknown Collection / Unknown 06/28/2022 12:06 PM CDT 06/28/2022 12:15 PM CDT Narrative [facility] - 06/30/2022 11:46 AM CDT Results should not be used for the evaluation of suspected sexual abuse or for other medico-legal indications. The only legally accepted results are from culture. Results cannot be used to assess therapeutic success or failure since nucleic acids may persist following antimicrobial therapy. Mali Leal MD MICROBIOLOGY - GENERAL ORDERABL ES Final Result [facility] [id number] [address] [facility] [place] [id number] from Last 3 Months or Most Recently Relevant to Health Maintenance Insurance [employer] [id number] Member Subscriber Plan / Payer (Ef fective 2021-Present) Name:Chante Reddy Relation to Subscriber:Child Name:ANN-MARIE REDDY Date of :1979 (Home) Address: [address] [place] [address] Payer ID:[id number] (NAIC) Type:O Address: [address] [place] [id number]
--- OUTSIDE RECORDS SUMMARY | 2024-12-27 17:34 | XMS_ITS | Encounter Summary ---
Author Organization [facility] Address [address] [place] [address] Care Team Providers Care Ecological Economist Name Role Phone Unavailable Primary Care Provider Unavailabl e Encounter Details Date Type Department Care Team (Late st Contact Info) Description 12/25/2024 External Device Data ST[facility] ABSTRACTION Provider, Abstract NO ADDRESS ON FILE Social History Tobacco Use Types Packs/Day Years Used Date Smoking Tobacco: Never Alcohol Use Standard Drinks/Week Comments Yes 0 (1 standard drink = 0.6 oz pur e alcohol) Comments No Sex and Gender Information Value Date Recorded Sex Assigned at Not on file Legal Sex Female 10:16 AM CDT Gender Identity Not on file Sexual Orientation Not on file documented as of this encounter Plan of Treatment Not on file documented as of this encounter Visit Diagnoses Not on filedocumented in this encounter
--- OUTSIDE RECORDS SUMMARY | 2024-12-27 17:34 | XMS_ITS | Referral Summary ---
Author Organization [facility] Address [address] [place] [address] Care Team Providers Care Construction Cost Estimator Name Role Phone Unknown, Notinfile Primary Care [...] on file Legal Sex Female 9:54 AM ACCOUNT DEVELOPMENT SPECIALIST Gender Identity Not on file Sexual Orientation [...] Plan of Treatment Not on file Insurance [facility] CHO[facility]US [facility] HMO/PPO Address: [address] [place] [address] [facility] CHOICE [facility]US [facility] HMO/PPO Address: [place] [address] Care Teams Construction Cost Estimator Relationship Specialty Start Date End Date Unknown, Notinfile PCP - General 04/12/22
--- OUTSIDE RECORDS SUMMARY | 2024-12-27 17:34 | XMS_ITS | Clinical Summary ---
Author Organization [facility] Address [address] [place] [address] Care Team Providers Care Storage Garage Attendant Name Role Phone Unknown, Notinfile Primary Care [...] on file Legal Sex Female 9:54 AM SIDEWALK REPAIRER Gender Identity Not on file Sexual Orientation [...] HPV Vaccines Completed 12/27/2011, 06/18, 02/09/2010 Insurance [facility] CHO[facility]US [facility] HMO/PPO Address: [address] [place] [address] [facility] CHO[facility]US [facility] HMO/PPO Address: [address] [address] [place] [address] Care Teams Storage Garage Attendant Relationship Specialty Start Date End Date Unknown, Notinfile PCP - General 04/12/22
== END 2024-12-27 16:13 | disposition home or self-care (01) ==
PROVIDERS: PCP Student in an Organized Health Care Education/Training Program; Visit Provider Student in an Organized Health Care Education/Training Program
DX: N91.2 Amenorrhea, unspecified (principal)
CPT/HCPCS: 76801; 76817

== ENCOUNTER 2025-03-30 11:59 | Emergency (ER) | payer OTHER, SELFPAY ==
--- NOTE | 2025-03-30 12:08 | ED.UPPEXIN ---
HPI - Extremity Injury (Upper) General Chief Complaint: Extremity Injury, Upper Stated Complaint: smashed finger in door Time Seen by Provider: 03/30/25 12:13 Source: patient and RN notes reviewed Mode of arrival: ambulatory Limitations: no limitations History of Present Illness HPI narrative: 24-year-old female presents with concern for injury to the 2nd digit of the right hand. Reports yesterday she smashed the finger in a car door. Reports mid digit pain and stiffness. Reports some bruising. Denies open skin denies decreased strength or sensation. Patient is 5 months complaint: injury to: right and finger Related Data Home Medications ?Medication ?Instructions ?Recorded ?Confirmed ?Last Taken ?Type docosahexaenoic acid 200 mg mg PO 12/19/24 03/12/25 Unknown History capsule ( DHA) Allergies Allergy/AdvReac Type Severity Reaction Status Date / Time No Known Allergies Allergy Verified 03/12/25 16:16 Review of Systems Review of Systems: CONSTITUTIONAL: Denies malaise, chills, sweats, or fever. SKIN: Denies rash or itching, open skin, laceration, abrasion, redness, warmth, swelling. MUSCULOSKELETAL: Reports pain, swelling, bruising his 2nd digit of the right hand NEUROLOGIC: Denies numbness, weakness All systems reviewed & are unremarkable except as noted in HPI and below PMFSH Past Medical History Medical History Amenorrhea Surgical History Surgical History History of removal of ovarian cyst 2018 History of appendectomy Social History Social History Smoking status: Never smoker Alcohol intake: former Substance use: never Substance use type: does not use Do You Feel Safe in your Home?: Yes Lack of Transportation: No Lack of Food: Never True Current Housing: I Have Housing Concerned About Future Housing: No Difficulty Paying Gas/Electric Bills: No Difficulty Paying for Meds: No Currently Unemployed: No Education: High School Diploma/GED Difficulty w/ Childcare or Family Care: No Living arrangements: alone Occupation/Education: occupation Additional occupation/education comments: [employer] Gender identity (if verbalized by the patient): Female Sexual Orientation (if Verbalized by the Patient): Straight or Heterosexual Comments At time of signature, agree with nursing past medical, surgical, social and family history. There is no relevant family history pertinent to the presenting complaint Exam Narrative: GENERAL: Well-appearing, well-nourished, and in no acute distress. HEAD: Normocephalic EYES: PERRLA, conjunctivae clear NECK: Supple. CHEST: Speaks in full sentences. No respiratory distress. HEART: Regular rate and rhythm. Normal and equal peripheral pulses. EXTREMITIES: 2nd digit of right hand has grossly normal strength and sensation. Range of motion limited. No clubbing, cyanosis. Edema ecchymosis, tenderness noted to the mid digit. Skin intact. Normal digital cascade with flexion of fingers, median, ulnar and radial nerve intact. Normal sensation of each side of finger. No scissoring. Normal thumb opposition. Good capillary refill and radial pulse. Distal capillary refill less than 3 seconds. SKIN: Warn, dry, intact, pink. No rash NEURO: Alert and oriented x3. PSYCH: Normal mood and affect Course Course Emergency Course: Discussed benefits versus risks of x-ray at this time. Based on patient's exam, mechanism of injury I feel the risk of x-ray outweigh the benefits at this point. Patient is agreeable. We will splint the finger and she will monitor it. If symptoms worsen she will return for an x-ray. Patient is aware of diagnosis, understands and agrees to treatment plan. Anticipatory guidance given. Patient agrees to follow-up as directed and is aware of reasons to seek care at the emergency department. Portions of this record may have been created with voice recognition software Level of Care: Express Care Visit Vital Signs Vital signs: Reviewed. Critical Care Time Critical Care Time Critical Care Time: No Discharge Plan Discharge Clinical Impression: Finger injury Patient Disposition: Home Condition: Stable Instructions: Crush Injury (ED) Additional Instructions: Avoid activities that cause pain until the pain subsides. Ice to the area 20-30 minutes 4-6 times a day Elevate above heart Orthopedic splint as directed for comfort for the next 5-7 days Tylenol for pain Follow up with your primary care provider or return for x-ray if your symptoms are not improving or getting worse in 3-4 days. If the condition worsens with numbness, tingling, decrease sensation with weakness seek treatment in the emergency room immediately. Patient Language: Kiswahili Prescriptions: No Action DHA 200 mg capsule PO ondansetron HCl 4 mg tablet 4 mg PO Q6H PRN (Reason: nausea and vomiting) Qty: 30 1RF Follow-up/Referrals: Jax Rush MD [Primary Care Provider] - Stand Alone Forms: Work/School Release IP Time of Disposition: 12:22
[2025-03-30 12:10] VITALS: BP 102/65; PULSE 99; RESP 12; TEMP 36.9; O2SAT 100
== END 2025-03-30 12:33 | disposition home or self-care (01) ==
PROVIDERS: Emergency Provider Nurse Practitioner; PCP Student in an Organized Health Care Education/Training Program
DX: O9A.219 Injury, poisoning and certain other consequences of external causes complicating pregnancy, unspecified trimester (principal); Z3A.00 Weeks of gestation of pregnancy not specified; S69.91XA Unspecified injury of right wrist, hand and finger(s), initial encounter; W23.2XXA Caught, crushed, jammed or pinched between a moving and stationary object, initial encounter
CPT/HCPCS: 29130; 99212; G0463

== ENCOUNTER 2025-04-22 02:45 | Observation (INO) | payer OTHER, SELFPAY ==
--- OUTSIDE RECORDS SUMMARY | 2025-04-22 02:41 | XMS_ITS | Clinical Summary ---
Author Organization [facility] Address [address] [place] [address] Care Team Providers Care Rotary Driller Prospecting Name Role Phone Unavailable Primary Care Provider [...] Encounters Date Type Department Care Team Description 04/16/2025 External Device Data STL ABSTRACTION Provider, Abstract 04/02/2025 External Device Data STL ABSTRACTION Provider, Abstract [...] 7:44 PM CDT Height 160 cm (5' 3) 06/21/2024 7:44 PM CDT Body Mass Index 22.32 06/21/2024 7:44 PM CDT Plan of Treatment Health Maintenance Due Date Last Done Comments HPV VACCINES (1 - 3-dose series) 2013 DTAP/TDAP/TD VACCINES (1 - Tdap) 2017 HEPATITIS B VACCINES (1 of 3 - 19+ 3-dose series) 11/2016 CERVICAL CANCER SCREENING 2019 HPV/Cotest (21-29) 2019 PAP SMEAR 2019 INFLUENZA VACCINE (#1) 2025 CHLAMYDIA SCREENING (ANNUAL) 11-24 YEARS Discontinued 06/28/2022 Procedures Procedure Name Priority Date/Time Associated Diagnosis Comments GC/CHLAMYDIA, UROGENITAL Stat 06/28/2022 12:06 PM CDT from Last 3 Months or Most Recently Relevant to Health Maintenance Results * GC/CHLAMYDIA, UROGENITAL (06/28/2022 12:06 PM CDT) CHLAMYDIA DNA AMPLIFICATION NOT DETECTED Not Detected 06/30/2022 11:46 AM CDT [facility] [employer] [facility] GC DNA AMPLIFICATION NOT DETECTED Not Detected 06/30/2022 11:46 AM CDT [facility] Genital SWAB OF ENDOCERVIX / Unknown Collection / Unknown 06/28/2022 12:06 PM CDT 06/28/2022 12:15 PM CDT [facility]ORAT[facility] - 06/30/2022 11:46 AM CDT Results should not be used for the evaluation of suspected sexual abuse or for other medico-legal indications. The only legally accepted results are from culture. Results cannot be used to assess therapeutic success or failure since nucleic acids may persist following antimicrobial therapy. Mali Leal MD MICROBIOLOGY - GENERAL ORDERABL ES Final Result [facility]# [id number] [address] [place] [id number] from Last 3 Months or Most Recently Relevant to Health Maintenance Insurance [employer] [id number]
--- OUTSIDE RECORDS SUMMARY | 2025-04-22 02:41 | XMS_ITS | Clinical Summary ---
Author Organization [facility] Address [address] [place] [address] Care Team Providers Care Plate Glass Polisher Name Role Phone None, Provider Primary Care Provider Unavaila ble Allergies No known active allergies Medications No known medications Social History Tobacco Use Types Packs/Day Years Used Date Smoking Tobacco: Never Assessed Comments Yes Sex and Gender Information Value Date Recorded Sex Assigned at Female 12/17/2024 11:45 PM ACOUSTICAL TILE PATTERNMAKER Legal Sex Female 11:35 PM ACOUSTICAL TILE PATTERNMAKER Gender Identity Not on file Sexual Orientation Not on file Last Filed Vital Signs Vital Sign Reading Time Taken Comments Blood Pressure 136/88 12/18/2024 2:58 AM ACOUSTICAL TILE PATTERNMAKER Pulse 115 12/18/2024 2:58 AM ACOUSTICAL TILE PATTERNMAKER Temperature 36.9 C (98.5 F) 12/17/2024 11:39 PM ACOUSTICAL TILE PATTERNMAKER Respiratory Rate 17 12/18/2024 2:58 AM ACOUSTICAL TILE PATTERNMAKER Oxygen Saturation 97% 12/18/2024 2:58 AM ACOUSTICAL TILE PATTERNMAKER Inhaled Oxygen Concentration - - Weight 54.9 kg (121 lb 0.5 oz) 12/17/2024 11:39 PM ACOUSTICAL TILE PATTERNMAKER Height 160 cm (5' 3) 12/17/2024 11:39 PM ACOUSTICAL TILE PATTERNMAKER Body Mass Index 21.44 12/17/2024 11:39 PM ACOUSTICAL TILE PATTERNMAKER Plan of Treatment Health Maintenance Due Date Last Done Comments Annual Physical 2001 HPV Vaccines (1 - 3-dose series) 2013 Hepatitis C 2016 DTaP, Tdap and Td Vaccines ( 1 - Tdap) 2017 Hepatitis B Vaccines (1 of 3 - 19+ 3-dose series) 2017 COVID-19 Vaccine (2023-2 5 season) 2024 Cervical Cancer Screening Pa p Smear [...] 5 Years) and At-Risk Patients (6 to 49 Years) Aged Out No longer eligi ble based on patient's age to complete this topic RSV Immunizations Under 20 Months Aged Out No longer eligible based on patient's age to complete [place] [address] MEDICAID Care Teams Plate Glass Polisher Relationship Specialty Start Date End Date None, Provider, PCP - General UNKNOWN PHYSICIAN SPECIALTY 12/18/24
--- OUTSIDE RECORDS SUMMARY | 2025-04-22 02:41 | XMS_ITS | Referral Summary ---
Author Organization [facility] Address [address] [place] [address] Care Team Providers Care Heating And Cooling Systems Engineer Name Role Phone Unknown, Notinfile Primary Care [...] on file Legal Sex Female 9:54 AM ECCLESIASTICAL WORKER Gender Identity Not on file Sexual Orientation [...] 4:07 PM CDT Height 160 cm (5' 3) 04/23/2023 4:07 PM CDT Body Mass Index 22.32 04/23/2023 4:07 PM CDT Plan of Treatment Not on file Insurance [facility] CHOICE PLUS [facility] HMO/PPO Address: [address] [place] [address] [facility] CHOICE PLUS [facility] HMO/PPO Address: [place] [address] Care Teams Heating And Cooling Systems Engineer Relationship Specialty Start Date End Date Unknown, Notinfile PCP - General 04/12/22
--- OUTSIDE RECORDS SUMMARY | 2025-04-22 02:41 | XMS_ITS | Clinical Summary ---
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 Gender Identity Not on file Sexual Orientation [...] 06/08/2009, 02/02/2000, Additional history exists Influenza Vaccine (Season Ended) 2025 07/15/2014, 12/06/2013, 07/13/2011 Hepatitis B Screening Completed 05/06/1999 , 1998, 1998 Pneumococcal vaccine <65 Completed 09/16/2000 Varicella Vaccines Completed 02/09/2010, 12/03/1999 HPV Vaccines Completed 12/27/2011, 06/18, 02/09/2010 Insurance [facility] CHOICE PLUS [facility] CHOICE PLUS [place] [id number] Care Teams Grit Blaster Relationship Specialty Start Date End Date Unknown, Notinfile PCP - General 04/12/22
[2025-04-22 03:00] VITALS: BP 101/66; PULSE 83
[2025-04-22 03:01] VITALS: BP 106/72; PULSE 85
[2025-04-22 03:04] VITALS: BMI 25.7
--- NOTE | 2025-04-22 03:04 | OBADM ---
This patient, Chante Clark Maureen, admitted to the OB room OB Post 117 for observation. Patient/family oriented to hospital policies and general routines including ID bracelet, bed and alarms, visiting hours, pain management, procedures, bathroom and other care routines, personal items, smoking policy, room service/diet, and visiting hours. Patient/Family are encouraged to report perceived risks to care and to ask questions if they do not understand what they are told or what they should do.
[2025-04-22 03:15] VITALS: BP 99/69; PULSE 78
--- NOTE | 2025-05-15 08:28 | PM.OBTRLD ---
OB - Triage/Final Diagnosis Visit Information Comments/Additional reasons for admission: I have assessed the risk for this patient, Chante Clark Maureen, and determined that she would benefit from observation care. Final Diagnosis (1) Abdominal pain: Code(s): R10.9 - Unspecified abdominal pain Status: Acute (2) Constipation: Code(s): K59.00 - Constipation, unspecified Status: Acute
== END 2025-04-22 03:30 | disposition home or self-care (01) ==
PROVIDERS: Admitting Provider Obstetrics & Gynecology; Visit Provider Obstetrics & Gynecology
DX: O26.892 Other specified pregnancy related conditions, second trimester (principal); R10.9 Unspecified abdominal pain; O99.612 Diseases of the digestive system complicating pregnancy, second trimester; K59.00 Constipation, unspecified; Z3A.25 25 weeks gestation of pregnancy
CPT/HCPCS: G0378; G0379

== ENCOUNTER 2025-05-13 10:08 | Emergency (ER) | payer OTHER, SELFPAY ==
[2025-05-13 10:21] VITALS: BP 130/101; PULSE 98; RESP 18; TEMP 36.8; O2SAT 99
[2025-05-13 10:30] VITALS: RESP 18
[2025-05-13 10:31] VITALS: BP 107/83
--- OUTSIDE RECORDS SUMMARY | 2025-05-13 10:36 | XMS_ITS | Referral Summary ---
Author Organization 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
--- OUTSIDE RECORDS SUMMARY | 2025-05-13 10:36 | XMS_ITS | Clinical Summary ---
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
--- OUTSIDE RECORDS SUMMARY | 2025-05-13 10:36 | XMS_ITS | Clinical Summary ---
Author Organization [facility] Address [address] [place] [address] Care Team Providers Care Money Position Officer Name Role Phone None, Provider Primary Care Provider Unavaila ble Allergies No known active allergies Medications No known medications Social History Tobacco Use Types Packs/Day Years Used Date Smoking Tobacco: Never Assessed Comments Yes Sex and Gender Information Value Date Recorded Sex Assigned at Female 12/17/2024 11:45 PM SOCIAL SCIENCES CHAIR Legal Sex Female 11:35 PM SOCIAL SCIENCES CHAIR Gender Identity Not on file Sexual Orientation Not on file Last Filed Vital Signs Vital Sign Reading Time Taken Comments Blood Pressure 136/88 12/18/2024 2:58 AM SOCIAL SCIENCES CHAIR Pulse 115 12/18/2024 2:58 AM SOCIAL SCIENCES CHAIR Temperature 36.9 C (98.5 F) 12/17/2024 11:39 PM SOCIAL SCIENCES CHAIR Respiratory Rate 17 12/18/2024 2:58 AM SOCIAL SCIENCES CHAIR Oxygen Saturation 97% 12/18/2024 2:58 AM SOCIAL SCIENCES CHAIR Inhaled Oxygen Concentration - - Weight 54.9 kg (121 lb 0.5 oz) 12/17/2024 11:39 PM SOCIAL SCIENCES CHAIR Height 160 cm (5' 3) 12/17/2024 11:39 PM SOCIAL SCIENCES CHAIR Body Mass Index 21.44 12/17/2024 11:39 PM SOCIAL SCIENCES CHAIR Plan of Treatment Health Maintenance Due Date Last Done Comments Annual Physical 2001 HPV Vaccines (1 - 3-dose series) 2013 Hepatitis C 2016 DTaP, Tdap and Td Vaccines ( 1 - Tdap) 2017 Hepatitis B Vaccines (1 of 3 - 19+ 3-dose series) 2017 COVID-19 Vaccine ( - 2023-2 5 season) 2024 Cervical Cancer Screening Pa [...] patient's age to complete [place] [address] MEDICAID Care Teams Money Position Officer Relationship Specialty Start Date End Date None, Provider, PCP - General UNKNOWN PHYSICIAN SPECIALTY 12/18/24
--- OUTSIDE RECORDS SUMMARY | 2025-05-13 10:36 | XMS_ITS | Clinical Summary ---
Author Organization [facility] Address [address] [place] [address] Care Team Providers Care Access Nurse Name Role Phone Unavailable Primary Care Provider Unavailabl e Source Comments [facility],non-owned Affiliates and Associated Physician Practices is amultiple site organization consisting of ambulatory clinics and hospital sitesin [place], [place], [place] and [place]. This disclosure is being madepursuant to the Care Everywhere program and may not contain all information available regarding this patient. Last updated 18.[facility] [employer] Allergies No known active allergies Medications * Be aware that medications may not be up to date on this document. Alwaysverify current medications with the patient. No known medications Active Problems Problem Noted Date Diagnosed Date Thyroid nodule 04/20/2023 Family History Relation Name Status Comments Father Alive Mother Alive Social History Tobacco Use Types Packs/Day Years Used Date Smoking Tobacco: Never Tobacco Cessation:Counseling Given: Not Answered Alcohol Use Standard Drinks/Week Comments No 0 (1 standard drink = 0.6 oz pur e alcohol) Comments Unknown Sex and Gender Information Value Date Recorded Sex Assigned at Not on file Legal Sex Female 5:41 AM ENVIRONMENTAL ENGINEER Gender Identity Not on file Sexual Orientation Not on file Last Filed Vital Signs Vital Sign Reading Time Taken Comments Blood Pressure 102/74 04/23/2024 3:24 PM CDT Pulse 88 09/18/2014 1:21 AM ENVIRONMENTAL ENGINEER Temperature 35.7 C (96.2 F) 09/18/2014 1:21 AM ENVIRONMENTAL ENGINEER Respiratory Rate 22 09/18/2014 1:21 AM ENVIRONMENTAL ENGINEER Oxygen Saturation 99% 09/17/2014 6:16 PM ENVIRONMENTAL ENGINEER Inhaled Oxygen Concentration - - Weight 57.6 kg (127 lb) 04/23/2024 3:24 PM CDT Height 160 cm (5' 3) 04/23/2024 3:24 PM CDT Body Mass Index 22.5 04/23/2024 3:24 PM CDT Plan of Treatment Upcoming Encounters Date Type Department Care Team (Late st Contact Info) Description 08/15/2025 11:00 AM CDT Office Visit [facility] - Endocrinology [address], [address] [place] [address] Yury Caro MD [address] [facility] [address] [place] [address] Health Maintenance Due Date Last Done Comments HIV SCREENING 2013 HPV VACCINE (1 - 3-dose series) 2013 HEPATITIS C SCREENING 07/13/2016 DTAP/TDAP/TD VACCINES (1 - Tdap) 2017 HEPATITIS B VACCINE (1 of 3 - 19+ 3-dose series) 2017 PAP SMEAR 2019 COVID-19 VACCINE (1 - 2023-2 5 season) 2024 DEPRESSION SCREENING 10/17/2024 INFLUENZA VACCINE (#1) 2025 ZOSTER VACCINE (1 of 2) 2048 HIB VACCINE Aged Out No longer eligi ble based on patient's age to complete this topic MENINGOCOCCAL (Group B) VACC INE SHARED DECISION-MAKING Aged Out No longer eligibl e based on patient's age to complete this topic MENINGOCOCCAL GROUPS A/C/Y/W VACCINE Aged Out No longer eligible b ased on patient's age to complete this topic PNEUMOCOCCAL VACCINE Aged Out No long er eligible based on patient's age to complete this topic Insurance
--- OUTSIDE RECORDS SUMMARY | 2025-05-13 10:36 | XMS_ITS | Clinical Summary ---
Author Organization [facility] Address [address] [place] [address] Care Team Providers Care Clothing Cutter Name Role Phone Unavailable Primary Care Provider [...] Encounters Date Type Department Care Team Description 05/01/2025 External Device Data STL ABSTRACTION Provider, Abstract 04/30/2025 External Device Data ST[facility] ABSTRACTION Provider, Abstract 04/16/2025 External Device Data ST[facility] ABSTRACTION Provider, [...] 2019 HPV/Cotest (21-29) 2019 PAP SMEAR 2019 Preventative Visit- Commercial 10/17/2024 INFLUENZA VACCINE (#1) 2025 CHLAMYDIA SCREENING (ANNUAL) 11-24 YEARS Discontinued 06/28/2022 Procedures Procedure Name Priority Date/Time Associated Diagnosis Comments GC/CHLAMYDIA, UROGENITAL Stat 06/28/2022 12:06 PM CDT from Last 3 Months or Most Recently Relevant to Health Maintenance Results * GC/CHLAMYDIA, UROGENITAL (06/28/2022 12:06 PM CDT) CHLAMYDIA DNA AMPLIFICATION NOT DETECTED Not Detected 06/30/2022 11:[address] [facility] GC DNA AMPLIFICATION NOT DETECTED Not Detected 06/30/2022 11:46 AM CDT [facility] [employer] [facility] Genital SWAB OF ENDOCERVIX / Unknown Collection / Unknown 06/28/2022 12:06 PM CDT 06/28/2022 12:[address] [facility] - 06/30/2022 11:46 AM CDT Results should not be used for the evaluation of suspected sexual abuse or for other medico-legal indications. The only legally accepted results are from culture. Results cannot be used to assess therapeutic success or failure since nucleic acids may persist following antimicrobial therapy. Mali Leal MD MICROBIOLOGY - GENERAL ORDERABL ES Final Result [facility]# [id number] [address] [place] [address] from Last 3 Months or Most Recently Relevant to Health Maintenance Insurance [employer] PLUS [employer] [id number]
[2025-05-13 10:37] LABS: Hematocrit 33.2 % (37.0-47.0); Hemoglobin 10.9 g/dL (12.0-15.0); Immature Granulocyte Percent A 0.9 % (0-0.5); Lymphocytes Absolute Auto 1.68 K/mm3 (0.9-3.2); Mean Corpuscular HGB Conc 32.8 g/dl (32-36); Mean Corpuscular Hemoglobin 28.6 pg (26-34); Mean Corpuscular Volume 87.1 fl (80-100); Nucleated Red Blood Cells Absolute Auto 0.000 K/mm3 (0.0-0.012); Nucleated Red Blood Cells Perc 0.0 % (0.0-0.2); Platelet Count Result 361 k/mm3 (150-375); Red Blood Count 3.81 M/mm3 (4.2-5.4); White Blood Count 16.9 K/mm3 (4.5-10.0)
[2025-05-13 10:57] LABS: Alanine Aminotransferase 18 U/L (6-35); Albumin Level 3.5 g/dL (3.5-5.1); Alkaline Phosphatase 114 U/L (38-126); Anion Gap 5 mmol/L (4-12); Aspartate Amino Transferase 30 U/L (14-36); Bilirubin,Total 0.4 mg/dL (0.2-1.3); Blood Urea Nitrogen 7 mg/dL (7-17); Calcium 8.8 mg/dL (8.4-10.2); Carbon Dioxide 20 mmol/L (22-30); Chloride 106 mmol/L (98-107); Estimated CRCL calculation 134 ml/min; Estimated Glomerular Filt Rate > 60; Glucose 80 mg/dL (65-110); Lipase 105 U/L (23-300); Potassium 4.0 mmol/L (3.4-5.0); Sodium 131 mmol/L (137-145); Total Protein 6.7 g/dL (6.3-8.2)
--- OUTSIDE RECORDS SUMMARY | 2025-05-13 10:59 | XMS_ITS | Clinical Summary ---
Author Organization [facility] Address [address] [place] [address] Care Team Providers Care Mergers And Acquisitions Consultant Name Role Phone Unavailable Primary Care Provider Unavailabl e Source Comments [facility],non-owned Affiliates and Associated Physician Practices is amultiple site organization consisting of ambulatory clinics and hospital sitesin [place], [place], [place] and [place]. This disclosure is being madepursuant to the Care Everywhere program and may not contain all information available regarding this patient. 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 Gender Identity Not on file Sexual Orientation Not on file Last Filed Vital Signs Vital Sign Reading Time Taken Comments Blood Pressure 102/74 04/23/2024 3:24 PM CDT Pulse 88 09/18/2014 1:21 AM CONSOLIDATION ACCOUNTANT Temperature 35.7 C (96.2 F) 09/18/2014 1:21 AM CONSOLIDATION ACCOUNTANT Respiratory Rate 22 09/18/2014 1:21 AM CONSOLIDATION ACCOUNTANT Oxygen Saturation 99% 09/17/2014 6:16 PM CONSOLIDATION ACCOUNTANT Inhaled Oxygen Concentration - - Weight 57.6 kg (127 lb) 04/23/2024 3:24 PM CDT Height 160 cm (5' 3) 04/23/2024 3:24 PM CDT Body Mass Index 22.5 04/23/2024 3:24 PM CDT Plan of Treatment Upcoming Encounters Date Type Department Care Team (Late st Contact Info) Description 08/15/2025 11:00 AM CDT Office Visit [facility] - Endocrinology [address], [address] [place] [address] Yury Caro MD [address] [facility] [address] [place] [address] Health Maintenance Due Date Last [...]
--- OUTSIDE RECORDS SUMMARY | 2025-05-13 10:59 | XMS_ITS | Clinical Summary ---
Author Organization [facility] Address [address] [place] [address] Care Team Providers Care [employer] Products Glazer Name Role Phone Unavailable Primary Care Provider [...] DETECTED Not Detected 06/30/2022 11:46 AM CDT [facility] GC DNA AMPLIFICATION NOT DETECTED Not Detected 06/30/2022 11:46 AM CDT [facility] [employer] [facility] Genital SWAB OF ENDOCERVIX / Unknown Collection / Unknown 06/28/2022 12:06 PM CDT 06/28/2022 12:15 PM CDT Narrative [facility] - 06/30/2022 11:46 AM CDT Results should not be used for the evaluation of suspected sexual abuse or for other medico-legal indications. The only legally accepted results are from culture. Results cannot be used to assess therapeutic success or failure since nucleic acids may persist following antimicrobial therapy. Mali Leal MD MICROBIOLOGY - GENERAL ORDERABL ES Final Result [facility]# [id number] [address] [place] [address] from Last 3 Months or Most Recently Relevant to Health Maintenance Insurance [employer] PLUS [employer] [id number]
--- OUTSIDE RECORDS SUMMARY | 2025-05-13 10:59 | XMS_ITS | Clinical Summary ---
Author Organization [facility] Address [address] [place] [address] Care Team Providers Care Demolition Crane Operator Name Role Phone Unknown, Notinfile Primary Care [...] on file Legal Sex Female 9:54 AM SNAGGER Gender Identity Not on file Sexual Orientation [...] Vaccines Completed 12/27/2011, 06/18, 02/09/2010 Insurance [facility] CHOICE PLUS [facility] HMO/PPO Address: [address] [place] [address] [facility] CHOICE PLUS [facility] H[facility]/PPO Address: [address] [address] [place] [address] Care Teams Demolition Crane Operator Relationship Specialty Start Date End Date Unknown, Notinfile PCP - General 04/12/22
--- OUTSIDE RECORDS SUMMARY | 2025-05-13 10:59 | XMS_ITS | Referral Summary ---
Author Organization [facility] Address [address] [place] [address] Care Team Providers Care Licensed Optical Dispenser Name Role Phone Unknown, Notinfile Primary Care [...] on file Legal Sex Female 9:54 AM YAM CURER Gender Identity Not on file Sexual Orientation [...] Plan of Treatment Not on file Insurance [facility] CHOICE PLUS [facility] HMO/PPO Address: [address] [place] [address] [facility] CHOICE PLUS [facility] H[facility]/PPO Address: [place] [address] Care Teams Licensed Optical Dispenser Relationship Specialty Start Date End Date Unknown, Notinfile PCP - General 04/12/22
--- OUTSIDE RECORDS SUMMARY | 2025-05-13 10:59 | XMS_ITS | Clinical Summary ---
Author Organization [facility] Address [address] [place] [address] Care Team Providers Care Occupational Therapist Assistants Name Role Phone None, Provider Primary Care Provider Unavaila ble Allergies No known active allergies Medications No known medications Social History Tobacco Use Types Packs/Day Years Used Date Smoking Tobacco: Never Assessed Comments Yes Sex and Gender Information Value Date Recorded Sex Assigned at Female 12/17/2024 11:45 PM SALES ESTIMATOR Legal Sex Female 11:35 PM SALES ESTIMATOR Gender Identity Not on file Sexual Orientation Not on file Last Filed Vital Signs Vital Sign Reading Time Taken Comments Blood Pressure 136/88 12/18/2024 2:58 AM SALES ESTIMATOR Pulse 115 12/18/2024 2:58 AM SALES ESTIMATOR Temperature 36.9 C (98.5 F) 12/17/2024 11:39 PM SALES ESTIMATOR Respiratory Rate 17 12/18/2024 2:58 AM SALES ESTIMATOR Oxygen Saturation 97% 12/18/2024 2:58 AM SALES ESTIMATOR Inhaled Oxygen Concentration - - Weight 54.9 kg (121 lb 0.5 oz) 12/17/2024 11:39 PM SALES ESTIMATOR Height 160 cm (5' 3) 12/17/2024 11:39 PM SALES ESTIMATOR Body Mass Index 21.44 12/17/2024 11:39 PM SALES ESTIMATOR Plan of Treatment Health Maintenance Due Date [...] patient's age to complete this [place] [address] MEDICAID Care Teams Occupational Therapist Assistants Relationship Specialty Start Date End Date None, Provider, PCP - General UNKNOWN PHYSICIAN SPECIALTY 12/18/24
[2025-05-13 11:14] LABS: Influenza A QL RT-PCR Negative (Negative); Influenza B QL RT-PCR Negative (Negative); RSV RNA, RT-PCR Negative (Negative); SARS-CoV-2 RNA PCR Negative (Negative)
[2025-05-13 11:24] VITALS: BP 108/81; PULSE 86; RESP 20; O2SAT 98
--- NOTE | 2025-05-13 11:34 | ED.FEVER ---
HPI - Fever General Chief Complaint: Fever Stated Complaint: fever, body aches, 28 week Time Seen by Provider: 05/13/25 10:20 History of Present Illness HPI Narrative: Patient is a 24-year-old female who presents to the ER with complaints of sore throat, body aches, chills, nausea, and fever. She also endorses decreased p.o. intake and states I can't keep anything down. Patient denies any recent travel or sick contacts. She reports she has been taking Tylenol at home for pain control. Patient denies any alcohol or drug use. She endorses some mild discomfort with urination. Patient is 28 weeks and continues to feel the baby move. She denies any other medical history relevant to this ER visit. Patient denies any palpitations, cough, lower extremity swelling. Related Data Home Medications ?Medication ?Instructions ?Recorded ?Confirmed ?Last Taken ?Type docosahexaenoic acid 200 mg mg PO 12/19/24 05/06/25 Unknown History capsule ( DHA) Allergies Allergy/AdvReac Type Severity Reaction Status Date / Time No Known Allergies Allergy Verified 05/13/25 10:28 Review of Systems Review of Systems: All systems reviewed & are unremarkable except as noted in HPI and below PMFSH Past Medical History Medical History Amenorrhea Surgical History Surgical History History of removal of ovarian cyst 2018 History of appendectomy Social History Social History Smoking status: Never smoker Alcohol intake: former Substance use: never Substance use type: does not use Do You Feel Safe in your Home?: Yes Lack of Transportation: No Lack of Food: Never True Current Housing: I Have Housing Concerned About Future Housing: No Difficulty Paying Gas/Electric Bills: No Difficulty Paying for Meds: No Currently Unemployed: No Education: High School Diploma/GED Difficulty w/ Childcare or Family Care: No Living arrangements: alone Occupation/Education: occupation Additional occupation/education comments: [employer] Gender identity (if verbalized by the patient): Female Sexual Orientation (if Verbalized by the Patient): Straight or Heterosexual Exam Narrative: GENERAL: Ill appearing, well-nourished, non-toxic, in no acute distress. HEAD: Normocephalic, atraumatic. NECK: Supple. No adenopathy, no masses. RESPIRATORY: Airway patent, respirations nonlabored. Clear to auscultation bilaterally, no rales, rhonchi, wheezing. CARDIOVASCULAR: Regular rate and rhythm without murmurs, rubs, or gallops. Peripheral pulses 2+ and equal bilaterally. ABDOMINAL: Soft, nontender, nondistended, no hepatosplenomegaly. Normoactive BS. MUSCULOSKELETAL: Moves all extremities. Strength/ROM intact without gross deformities. SKIN: Warm, dry, normal color. No rashes. NEURO: A&O X3. Speech clear. Cranial nerves II-XII intact. No ataxic movements. PSYCHIATRIC: Appropriate mood and affect. Normal interaction. Course Vital Signs Vital signs: Vital Signs Temperature 36.8 C 05/13/25 10:21 Pulse Rate 98 05/13/25 10:21 Respiratory Rate 18 05/13/25 10:21 Blood Pressure 130/101 H 05/13/25 10:21 Pulse Oximetry 99 05/13/25 10:21 Oxygen Delivery Room Air 05/13/25 10:21 Temperature 36.8 C 05/13/25 10:21 Pulse Rate 86 05/13/25 11:24 Respiratory Rate 20 05/13/25 11:24 Blood Pressure 108/81 05/13/25 11:24 Pulse Oximetry 98 05/13/25 11:24 Oxygen Delivery Room Air 05/13/25 10:21 MDM - Fever MDM Narrative Medical decision making narrative: Patient is a 24-year-old female who presents to the ER with complaints of sore throat, body aches, chills, nausea, and fever. She also endorses decreased p.o. intake and states I can't keep anything down. Patient denies any recent travel or sick contacts. She reports she has been taking Tylenol at home for pain control. Patient denies any alcohol or drug use. She endorses some mild discomfort with urination. Patient is 28 weeks and continues to feel the baby move. She denies any other medical history relevant to this ER visit. Patient denies any palpitations, cough, lower extremity swelling. Labs Ordered: CBC, CMP, UA, CRP, lactic acid, lipase, COVID/flu/RSV Imaging Ordered: None necessary Medications Ordered: 1 L normal saline IV bolus, Zofran 4 mg IV Results: Patient's CBC indicates white blood cell count of 16.9, red blood cells of 3.81, hemoglobin of 10.9, hematocrit of 33.2%. Her CMP indicates a sodium of 131, carbon dioxide of 20, creatinine of 0.43. CRP of 1.6. Diagnosis: Upper respiratory infection, dehydration, urinary tract infection Consults: OBGYN (outpatient) Patient Education/Shared MDM: Results of lab work shared with patient. She endorses improvement of symptoms following IV normal saline administration. Patient strongly advised to maintain hydration status upon discharge and follow-up with her OBGYN as soon as possible. She will be discharged home with a prescription for Zofran and Reglan. Strict return precautions provided. Patient verbalized understanding and is in agreement with plan. Vital signs stable at time of discharge. All questions answered. Differential Diagnosis Differential diagnosis: Likely fever of unknown origin, viral infection, influenza and other (Urinary tract infection) Lab Data Attestation: I reviewed the patient's lab results. 05/13/25 10:31 05/13/25 10:31 Labs: Lab Results 05/13/25 05/13/25 05/13/25 Range/Units 10:30 10:31 11:16 WBC 16.9 H (4.5-10.0) K/mm3 RBC 3.81 L (4.2-5.4) M/mm3 Hgb 10.9 L (12.0-15.0) g/dL Hct 33.2 L (37.0-47.0) % MCV 87.1 (80-100) fl MCH 28.6 (26-34) pg MCHC 32.8 (32-36) g/dl RDW 13.8 (11.5-14.5) % Plt Count 361 (150-375) k/mm3 MPV 10.2 (7.4-10.4) fl Immature Gran % (Auto) 0.9 H (0-0.5) % Neut % (Auto) 79.3 H (45.5-73.1) % Lymph % (Auto) 10.0 L (18.3-44.2) % [place] % (Auto) 7.9 (2.6-8.5) % Eos % (Auto) 1.7 (0-4.4) % Baso % (Auto) 0.2 (0.2-1.2) % Lymph # (Auto) 1.68 (0.9-3.2) K/mm3 [place] # (Auto) 1.3 H (0.1-0.6) K/mm3 Eos # (Auto) 0.3 (0-0.3) K/mm3 Baso # (Auto) 0.0 (0.0-0.1) K/mm3 Abs Immat Gran (auto) 0.16 H (0.00-0.031) K/mm3 Absolute Neuts (auto) 13.4 H (1.3-6.7) K/mm3 Absolute Nucleated RBC 0.000 (0.0-0.012) K/mm3 Nucleated RBC % 0.0 (0.0-0.2) % Sodium 131 L (137-145) mmol/L Potassium 4.0 (3.4-5.0) mmol/L Chloride 106 (98-107) mmol/L Carbon Dioxide 20 L (22-30) mmol/L Anion Gap 5 (4-12) mmol/L BUN 7 (7-17) mg/dL Creatinine 0.43 L (0.7-1.0) mg/dL Estim Creat Clear Calc 134 ml/min Estimated GFR > 60 (59 - ) Glucose 80 (65-110) mg/dL Lactic Acid (0.7-2.0) mmol/L Calcium 8.8 (8.4-10.2) mg/dL Total Bilirubin 0.4 (0.2-1.3) mg/dL AST 30 (14-36) U/L ALT 18 (6-35) U/L Alkaline Phosphatase 114 (38-126) U/L C-Reactive Protein (<1.0) mg/dL Total Protein 6.7 (6.3-8.2) g/dL Albumin 3.5 (3.5-5.1) g/dL Lipase 105 (23-300) U/L Urine Color Yellow (Yellow) Urine Appearance Clear (Clear) Urine pH 7.0 (5.0-9.0) Ur Specific [place] 1.020 (1.001-1.035) Urine Protein Negative (Negative) mg/dL Urine Glucose (UA) Trace H (Negative) mg/dL Urine Ketones Negative (Negative) mg/dL Ur Blood (Man) Negative (Negative) Urine Nitrate Negative (Negative) Urine Bilirubin Negative (Negative) Urine Urobilinogen 0.2 (<2.0) mg/dL Add Ur Microanalysis Reviewed Leukocyte Esterase Rfl Trace H (Negative) [place]/UL Urine RBC 0-2 (0-2) /hpf Urine WBC 6-10 H (0-3) /hpf Ur Squamous Epith Cells Moderate (Few) /hpf Urine Bacteria 4+ H /hpf Urine Casts 0-2 Influenza A (RT-PCR) Negative (Negative) Influenza B (RT-PCR) Negative (Negative) RSV (RT-PCR) Negative (Negative) SARS-CoV-2 RNA (RT-PCR) Negative (Negative) 05/13/25 Range/Units 12:44 WBC (4.5-10.0) K/mm3 RBC (4.2-5.4) M/mm3 Hgb (12.0-15.0) g/dL Hct (37.0-47.0) % MCV (80-100) fl MCH (26-34) pg MCHC (32-36) g/dl RDW (11.5-14.5) % Plt Count (150-375) k/mm3 MPV (7.4-10.4) fl Immature Gran % (Auto) (0-0.5) % Neut % (Auto) (45.5-73.1) % Lymph % (Auto) (18.3-44.2) % [place] % (Auto) (2.6-8.5) % Eos % (Auto) (0-4.4) % Baso % (Auto) (0.2-1.2) % Lymph # (Auto) (0.9-3.2) K/mm3 [place] # (Auto) (0.1-0.6) K/mm3 Eos # (Auto) (0-0.3) K/mm3 Baso # (Auto) (0.0-0.1) K/mm3 Abs Immat Gran (auto) (0.00-0.031) K/mm3 Absolute Neuts (auto) (1.3-6.7) K/mm3 Absolute Nucleated RBC (0.0-0.012) K/mm3 Nucleated RBC % (0.0-0.2) % Sodium (137-145) mmol/L Potassium (3.4-5.0) mmol/L Chloride (98-107) mmol/L Carbon Dioxide (22-30) mmol/L Anion Gap (4-12) mmol/L BUN (7-17) mg/dL Creatinine (0.7-1.0) mg/dL Estim Creat Clear Calc ml/min Estimated GFR (59 - ) Glucose (65-110) mg/dL Lactic Acid 0.8 (0.7-2.0) mmol/L Calcium (8.4-10.2) mg/dL Total Bilirubin (0.2-1.3) mg/dL AST (14-36) U/L ALT (6-35) U/L Alkaline Phosphatase (38-126) U/L C-Reactive Protein 1.6 H (<1.0) mg/dL Total Protein (6.3-8.2) g/dL Albumin (3.5-5.1) g/dL Lipase (23-300) U/L Urine Color (Yellow) Urine Appearance (Clear) Urine pH (5.0-9.0) Ur Specific [place] (1.001-1.035) Urine Protein (Negative) mg/dL Urine Glucose (UA) (Negative) mg/dL Urine Ketones (Negative) mg/dL Ur Blood (Man) (Negative) Urine Nitrate (Negative) Urine Bilirubin (Negative) Urine Urobilinogen (<2.0) mg/dL Add Ur Microanalysis Leukocyte Esterase Rfl (Negative) [place]/UL Urine RBC (0-2) /hpf Urine WBC (0-3) /hpf Ur Squamous Epith Cells (Few) /hpf Urine Bacteria /hpf Urine Casts Influenza A (RT-PCR) (Negative) Influenza B (RT-PCR) (Negative) RSV (RT-PCR) (Negative) SARS-CoV-2 RNA (RT-PCR) (Negative) Discharge Plan Discharge Clinical Impression: Upper respiratory infection, Dehydration during , Urinary tract infection affecting Patient Disposition: Home Condition: Stable Instructions: Antibiotic Form, Urinary Tract Infection in Women (ED), Viral Syndrome (ED) Additional Instructions: Please return to the ER with any worsening symptoms. Follow-up with your OBGYN as soon as possible. Take all medications as prescribed. Complete your full dose of antibiotics. You may take Tylenol for pain control. Patient Language: Moroccan Prescriptions: New sulfamethoxazole-trimethoprim [Bactrim DS] 800-160 mg tablet 1 tablet PO Q12H 3 Days Qty: 6 0RF No Action DHA 200 mg capsule PO Follow-up/Referrals: UNKNOWN,DOCTOR [Primary Care Provider] - Time of Disposition: 13:31
[2025-05-13] MEDS: ONDANSETRON INJ 4 MG/2 ML VIAL IV PUSH (11:39)
[2025-05-13] MEDS: SODIUM CHLORIDE 0.9% IV 1,000 ML 999 ML IV CONT (11:39)
[2025-05-13 11:53] LABS: Add Urine Microscopic? YES; Appearance Urine Clear (Clear); Glucose Urine UA Trace mg/dL (Negative); Leukocyte Esterase Ur Trace LEU/UL (Negative); Need Manual Microscopic Reviewed; Nitrate Urine Negative (Negative); Non Pathogenic Casts 0-2; Specific Grav Ur 1.020 (1.001-1.035)
[2025-05-13 13:14] LABS: CRP 1.6 mg/dL (<1.0)
[2025-05-13] MEDS: SULFAMETHOXAZOLE/TRIMETHOPRIM 800/160 MG DS TABLET 1 TAB PO (13:34)
== END 2025-05-13 14:07 | disposition home or self-care (01) ==
PROVIDERS: Emergency Medicine; Emergency Provider Registered Nurse
DX: O99.513 Diseases of the respiratory system complicating pregnancy, third trimester (principal); J06.9 Acute upper respiratory infection, unspecified; O23.43 Unspecified infection of urinary tract in pregnancy, third trimester; N39.0 Urinary tract infection, site not specified; O99.283 Endocrine, nutritional and metabolic diseases complicating pregnancy, third trimester; E86.0 Dehydration; Z3A.28 28 weeks gestation of pregnancy
CPT/HCPCS: 36415; 80053; 81001; 83605; 83690; 85025; 86140; 87637; 96361; 96374; 99284; A9270; J2405; J7030

== ENCOUNTER 2025-05-23 15:52 | Outpatient (CLI) | payer OTHER, SELFPAY ==
--- OUTSIDE RECORDS SUMMARY | 2025-05-23 15:57 | XMS_ITS | Clinical Summary ---
Author Organization [facility] Address [address] [place] [id number] Care Team Providers Care Production Administrative Assistant Name Role Phone None, Provider Primary Care Provider Unavaila ble Allergies No known active allergies Medications No known medications Social History Tobacco Use Types Packs/Day Years Used Date Smoking Tobacco: Never Assessed Comments Yes Sex and Gender Information Value Date Recorded Sex Assigned at Female 12/17/2024 11:45 PM STRIPPER AND PRINTER Legal Sex Female 11:35 PM STRIPPER AND PRINTER Gender Identity Not on file Sexual Orientation Not on file Last Filed Vital Signs Vital Sign Reading Time Taken Comments Blood Pressure 136/88 12/18/2024 2:58 AM STRIPPER AND PRINTER Pulse 115 12/18/2024 2:58 AM STRIPPER AND PRINTER Temperature 36.9 C (98.5 F) 12/17/2024 11:39 PM STRIPPER AND PRINTER Respiratory Rate 17 12/18/2024 2:58 AM STRIPPER AND PRINTER Oxygen Saturation 97% 12/18/2024 2:58 AM STRIPPER AND PRINTER Inhaled Oxygen Concentration - - Weight 54.9 kg (121 lb 0.5 oz) 12/17/2024 11:39 PM STRIPPER AND PRINTER Height 160 cm (5' 3) 12/17/2024 11:39 PM STRIPPER AND PRINTER Body Mass Index 21.44 12/17/2024 11:39 PM STRIPPER AND PRINTER Plan of Treatment Health Maintenance Due Date [...] patient's age to complete this [place] [address] MEDICAID Care Teams Production Administrative Assistant Relationship Specialty Start Date End Date None, Provider, PCP - General UNKNOWN PHYSICIAN SPECIALTY 12/18/24
--- OUTSIDE RECORDS SUMMARY | 2025-05-23 15:57 | XMS_ITS | Clinical Summary ---
Author Organization [facility] Address [address] [place] [address] Care Team Providers Care Safemaker Name Role Phone Unavailable Primary Care Provider [...] Detected 06/30/2022 11:46 AM CDT [facility] GC DNA AMPLIFICATION NOT DETECTED Not Detected 06/30/2022 11:46 AM CDT [facility] Genital SWAB OF ENDOCERVIX / Unknown Collection / Unknown 06/28/2022 12:06 PM CDT 06/28/2022 12:15 PM CDT Narrative [facility] - 06/30/2022 11:46 AM CDT Results should not be used for the evaluation of suspected sexual abuse or for other medico-legal indications. The only legally accepted results are from culture. Results cannot be used to assess therapeutic success or failure since nucleic acids may persist following antimicrobial therapy. Mali Leal MD MICROBIOLOGY - GENERAL ORDERABL ES Final Result [facility]# [id number] [address] [place] [id number] from Last 3 Months or Most Recently Relevant to Health Maintenance Insurance [employer] [id number]
--- OUTSIDE RECORDS SUMMARY | 2025-05-23 15:57 | XMS_ITS | Clinical Summary ---
Author Organization [facility] Address [address] [place] [address] Care Team Providers Care Administrative Medical Director Name Role Phone Unavailable Primary Care Provider Unavailabl e Source Comments [facility],non-owned Affiliates and Associated Physician Practices is amultiple site organization consisting of ambulatory clinics and hospital sitesin [place], [place], [place] and [place]. This disclosure is being madepursuant to the Care Everywhere program and may not contain all information available regarding this patient. 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 Gender Identity Not on file Sexual Orientation Not on file Last Filed Vital Signs Vital Sign Reading Time Taken Comments Blood Pressure 102/74 04/23/2024 3:24 PM CDT Pulse 88 09/18/2014 1:21 AM AUTOMOTIVE WARRANTY ADMINISTRATOR Temperature 35.7 C (96.2 F) 09/18/2014 1:21 AM AUTOMOTIVE WARRANTY ADMINISTRATOR Respiratory Rate 22 09/18/2014 1:21 AM AUTOMOTIVE WARRANTY ADMINISTRATOR Oxygen Saturation 99% 09/17/2014 6:16 PM AUTOMOTIVE WARRANTY ADMINISTRATOR Inhaled Oxygen Concentration - - Weight 57.6 kg (127 lb) 04/23/2024 3:24 PM CDT Height 160 cm (5' 3) 04/23/2024 3:24 PM CDT Body Mass Index 22.5 04/23/2024 3:24 PM CDT Plan of Treatment Upcoming Encounters Date Type Department Care Team (Late st Contact Info) Description 08/15/2025 11:00 AM CDT Office Visit [facility] - Endocrinology [address], [address] [place] [address] Yury Caro MD [address] [facility] [address] [place] [address] Health Maintenance Due Date Last [...]
--- OUTSIDE RECORDS SUMMARY | 2025-05-23 15:57 | XMS_ITS | Clinical Summary ---
Author Organization [facility] Address [address] [place] [address] Care Team Providers Care Web Art Director Name Role Phone Unknown, Notinfile Primary [...] on file Legal Sex Female 9:54 AM LAPPER Gender Identity Not on file Sexual Orientation [...] HPV Vaccines Completed 12/27/2011, 06/18, 02/09/2010 Insurance [facility] CHOICE PLUS [facility] HMO/PPO Address: [address] [place] [address] [facility] CHOICE [facility] HMO/PPO Address: [address] [address] [place] [address] Care Teams Web Art Director Relationship Specialty Start Date End Date Unknown, Notinfile PCP - General 04/12/22
[2025-05-23 17:15] LABS: Hematocrit 33.5 % (37.0-47.0); Hemoglobin 11.0 g/dL (12.0-15.0); Immature Granulocyte Percent A 1.3 % (0-0.5); Lymphocytes Absolute Auto 1.77 K/mm3 (0.9-3.2); Mean Corpuscular HGB Conc 32.8 g/dl (32-36); Mean Corpuscular Hemoglobin 28.8 pg (26-34); Mean Corpuscular Volume 87.7 fl (80-100); Nucleated Red Blood Cells Absolute Auto 0.000 K/mm3 (0.0-0.012); Nucleated Red Blood Cells Perc 0.0 % (0.0-0.2); Platelet Count Result 421 k/mm3 (150-375); Red Blood Count 3.82 M/mm3 (4.2-5.4); White Blood Count 14.9 K/mm3 (4.5-10.0)
[2025-05-23 17:27] LABS: Glucose 1 Hour PP 50gm Dose 118 mg/dL
[2025-05-23 17:55] LABS: Syphilis IgG/IgM Antibody Non-Reactive (Nonreactive)
[2025-05-23 18:07] LABS: HIV 1/2 Ab P24 Ag Result Negative (Negative)
== END 2025-05-23 15:53 | disposition home or self-care (01) ==
LOC: ANHLAB 15:54
PROVIDERS: Visit Provider Student in an Organized Health Care Education/Training Program
DX: Z34.90 Encounter for supervision of normal pregnancy, unspecified, unspecified trimester (principal); Z3A.00 Weeks of gestation of pregnancy not specified
CPT/HCPCS: 36415; 82947; 85025; 86593; 86703; G0432

== ENCOUNTER 2025-06-10 09:08 | Observation (INO) | payer OTHER, SELFPAY ==
[2025-06-10] VITALS (8 sets, daily range): BP systolic 106–115; BP diastolic 70–82; PULSE 85–93; BMI 28.0
--- NOTE | 2025-06-10 09:08 | OBADM ---
This patient, Chante Clark Maureen, admitted to the OB room OB Post 116 for observation. Patient/family oriented to hospital policies and general routines including ID bracelet, bed and alarms, visiting hours, pain management, procedures, bathroom and other care routines, personal items, smoking policy, room service/diet, and visiting hours. Patient/Family are encouraged to report perceived risks to care and to ask questions if they do not understand what they are told or what they should do.
--- OUTSIDE RECORDS SUMMARY | 2025-06-10 09:45 | XMS_ITS | Clinical Summary ---
Author Organization [facility] Address [address] [place] [address] Care Team Providers Care Design Engineering Intern Name Role Phone Unavailable Primary Care Provider Unavailabl e Source Comments [facility],non-owned Affiliates and Associated Physician Practices is amultiple site organization consisting of ambulatory clinics and hospital sitesin [place], [place], [place] and [place]. This disclosure is being madepursuant to the Care Everywhere program and may not contain all information available regarding this patient. Last updated 18.[facility] RepairPal Allergies No known active allergies Medications * [...] on file Legal Sex Female 5:41 AM REMEDIAL TEACHER Gender Identity Not on file Sexual Orientation Not on file Last Filed Vital Signs Vital Sign Reading Time Taken Comments Blood Pressure 102/74 04/23/2024 3:24 PM CDT Pulse 88 09/18/2014 1:21 AM REMEDIAL TEACHER Temperature 35.7 C (96.2 F) 09/18/2014 1:21 AM REMEDIAL TEACHER Respiratory Rate 22 09/18/2014 1:21 AM REMEDIAL TEACHER Oxygen Saturation 99% 09/17/2014 6:16 PM REMEDIAL TEACHER Inhaled Oxygen Concentration - - Weight 57.6 kg (127 lb) 04/23/2024 3:24 PM CDT Height 160 cm (5' 3) 04/23/2024 3:24 PM CDT Body Mass Index 22.5 04/23/2024 3:24 PM CDT Plan of Treatment Upcoming Encounters Date Type Department Care Team (Late st Contact Info) Description 08/15/2025 11:00 AM CDT Office Visit [facility] - Endocrinology [address] [facility] [facility] [facility], [address] [place] [address] Yury Caro MD [address] [facility] [address] [place] [address] Health Maintenance Due Date Last [...] patient's age to complete [place] [address]
--- OUTSIDE RECORDS SUMMARY | 2025-06-10 09:45 | XMS_ITS | Clinical Summary ---
Author Organization [facility] Address [address] [place] [address] Care Team Providers Care Industrial Tech Instructor Name Role Phone Unavailable Primary Care Provider [...] Encounters Date Type Department Care Team Description 06/04/2025 External Device Data [facility] ABSTRACTION Provider, Abstract 05/01/2025 External Device Data [facility] ABSTRACTION Provider, [...] DETECTED Not Detected 06/30/2022 11:46 AM CDT [facility] GC DNA AMPLIFICATION NOT DETECTED Not Detected 06/30/2022 11:46 AM CDT [facility] Genital SWAB OF ENDOCERVIX / Unknown Collection / Unknown 06/28/2022 12:06 PM CDT 06/28/2022 12:15 PM CDT Narrative [facility] - 06/30/2022 11:46 AM CDT Results should not be used for the evaluation of suspected sexual abuse or for other medico-legal indications. The only legally accepted results are from culture. Results cannot be used to assess therapeutic success or failure since nucleic acids may persist following antimicrobial therapy. Mali Leal MD MICROBIOLOGY - GENERAL ORDERABL ES Final Result [facility]# [id number] [place] [address] from Last 3 Months or Most Recently Relevant to Health Maintenance Insurance [employer] PLUS [employer] [id number]
--- OUTSIDE RECORDS SUMMARY | 2025-06-10 09:45 | XMS_ITS | Clinical Summary ---
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
[2025-06-10 10:02] LABS: Hematocrit 30.8 % (37.0-47.0); Hemoglobin 10.1 g/dL (12.0-15.0); Immature Granulocyte Percent A 1.1 % (0-0.5); Lymphocytes Absolute Auto 1.84 K/mm3 (0.9-3.2); Mean Corpuscular HGB Conc 32.8 g/dl (32-36); Mean Corpuscular Hemoglobin 28.2 pg (26-34); Mean Corpuscular Volume 86.0 fl (80-100); Nucleated Red Blood Cells Absolute Auto 0.000 K/mm3 (0.0-0.012); Nucleated Red Blood Cells Perc 0.0 % (0.0-0.2); Platelet Count Result 358 k/mm3 (150-375); Red Blood Count 3.58 M/mm3 (4.2-5.4); White Blood Count 14.4 K/mm3 (4.5-10.0)
[2025-06-10] MEDS: ONDANSETRON INJ 4 MG/2 ML VIAL IV PUSH (10:03)
[2025-06-10] MEDS: LACTATED RINGERS 1,000 ML 999 ML IV CONT (10:03)
[2025-06-10 10:06] LABS: Add Urine Microscopic? YES; Appearance Urine Cloudy (Clear); Glucose Urine UA Trace mg/dL (Negative); Leukocyte Esterase Ur Negative LEU/UL (Negative); Nitrate Urine Negative (Negative); Non Pathogenic Casts 0-2; Specific Grav Ur 1.013 (1.001-1.035)
[2025-06-10 10:23] LABS: Alanine Aminotransferase 18 U/L (6-35); Albumin Level 3.3 g/dL (3.5-5.1); Alkaline Phosphatase 109 U/L (38-126); Anion Gap 6 mmol/L (4-12); Aspartate Amino Transferase 33 U/L (14-36); Bilirubin,Total 0.6 mg/dL (0.2-1.3); Blood Urea Nitrogen 8 mg/dL (7-17); Calcium 8.9 mg/dL (8.4-10.2); Carbon Dioxide 21 mmol/L (22-30); Chloride 104 mmol/L (98-107); Estimated CRCL calculation 143 ml/min; Estimated Glomerular Filt Rate > 60; Glucose 87 mg/dL (65-110); Potassium 4.1 mmol/L (3.4-5.0); Sodium 131 mmol/L (137-145); Total Protein 6.3 g/dL (6.3-8.2)
[2025-06-10] MEDS: PANTOPRAZOLE 40 MG TABLET PO (10:54)
[2025-06-10] MEDS: SODIUM CHLORIDE 0.9% IV 1,000 ML 999 ML IV CONT (11:19)
--- NOTE | 2025-06-10 12:50 | PM.OBTRLD ---
OB - Triage/Final Diagnosis Visit Information Date of evaluation: 06/10/25 Reason for evaluation: other (nausea ) Comments/Additional reasons for admission: I have assessed the risk for this patient, Chante A Maureen, and determined that she would benefit from observation care. Evaluation Laboratory results: Laboratory Tests 06/10/25 09:56 WBC 14.4 H RBC 3.58 L Hgb 10.1 L Hct 30.8 L MCV 86.0 MCH 28.2 MCHC 32.8 RDW 13.3 Plt Count 358 MPV 10.7 H Immature Gran % (Auto) 1.1 H Neut % (Auto) 73.1 Lymph % (Auto) 12.8 L [place] % (Auto) 10.0 H Eos % (Auto) 2.7 Baso % (Auto) 0.3 Lymph # (Auto) 1.84 [place] # (Auto) 1.4 H Eos # (Auto) 0.4 H Baso # (Auto) 0.0 Abs Immat Gran (auto) 0.16 H Absolute Neuts (auto) 10.5 H Absolute Nucleated RBC 0.000 Nucleated RBC % 0.0 Sodium 131 L Potassium 4.1 Chloride 104 Carbon Dioxide 21 L Anion Gap 6 BUN 8 Creatinine 0.47 L Estim Creat Clear Calc 143 Estimated GFR > 60 Glucose 87 Calcium 8.9 Total Bilirubin 0.6 AST 33 ALT 18 Alkaline Phosphatase 109 Total Protein 6.3 Albumin 3.3 L Urine Color Yellow Urine Appearance Cloudy H Urine pH 7.0 Ur Specific [place] 1.013 Urine Protein Negative Urine Glucose (UA) Trace H Urine Ketones Negative Ur Blood (Man) Negative Urine Nitrate Negative Urine Bilirubin Negative Urine Urobilinogen 0.2 Ur Leukocyte Esterase Negative Urine RBC 0-2 Urine WBC 0-5 Ur Squamous Epith Cells Occasional Urine Bacteria 1+ H Urine Casts 0-2 Vital signs: Vital Signs - 24 hr 06/10/25 09:30 06/10/25 09:45 06/10/25 10:00 Pulse Rate 90 93 91 Blood Pressure 115/82 113/80 111/77 06/10/25 10:15 06/10/25 10:30 06/10/25 10:45 Pulse Rate 90 89 85 Blood Pressure 114/77 110/80 112/70 06/10/25 11:00 06/10/25 11:15 Pulse Rate 93 90 Blood Pressure 113/72 106/70
== END 2025-06-10 12:51 | disposition home or self-care (01) ==
PROVIDERS: Admitting Provider Student in an Organized Health Care Education/Training Program; Visit Provider Student in an Organized Health Care Education/Training Program
DX: O21.2 Late vomiting of pregnancy (principal); Z3A.32 32 weeks gestation of pregnancy
CPT/HCPCS: 36415; 80053; 81001; 85025; 96374; A9270; G0378; G0379; J2405; J7030; J7120

== ENCOUNTER 2025-06-19 10:48 | Outpatient (CLI) | payer OTHER, SELFPAY ==
[2025-06-19 11:00] VITALS: BMI 30.2
[2025-06-19 11:16] VITALS: BP 122/77; PULSE 88
[2025-06-19 11:23] LABS: Hematocrit 30.4 % (37.0-47.0); Hemoglobin 9.8 g/dL (12.0-15.0); Immature Granulocyte Percent A 1.2 % (0-0.5); Lymphocytes Absolute Auto 1.39 K/mm3 (0.9-3.2); Mean Corpuscular HGB Conc 32.2 g/dl (32-36); Mean Corpuscular Hemoglobin 28.1 pg (26-34); Mean Corpuscular Volume 87.1 fl (80-100); Nucleated Red Blood Cells Absolute Auto 0.000 K/mm3 (0.0-0.012); Nucleated Red Blood Cells Perc 0.0 % (0.0-0.2); Platelet Count Result 333 k/mm3 (150-375); Red Blood Count 3.49 M/mm3 (4.2-5.4); White Blood Count 13.6 K/mm3 (4.5-10.0)
[2025-06-19 11:30] VITALS: BP 113/75; PULSE 95
[2025-06-19 11:37] LABS: Alanine Aminotransferase 17 U/L (6-35); Albumin Level 3.0 g/dL (3.5-5.1); Alkaline Phosphatase 138 U/L (38-126); Anion Gap 6 mmol/L (4-12); Aspartate Amino Transferase 27 U/L (14-36); Bilirubin,Total 0.4 mg/dL (0.2-1.3); Blood Urea Nitrogen 9 mg/dL (7-17); Calcium 8.8 mg/dL (8.4-10.2); Carbon Dioxide 17 mmol/L (22-30); Chloride 106 mmol/L (98-107); Estimated Glomerular Filt Rate > 60; Glucose 137 mg/dL (65-110); Potassium 3.7 mmol/L (3.4-5.0); Sodium 129 mmol/L (137-145); Total Protein 5.9 g/dL (6.3-8.2); Uric Acid 4.3 mg/dL (2.5-7.5)
[2025-06-19 11:46] VITALS: BP 95/59; PULSE 88
[2025-06-19 11:49] LABS: Add Urine Microscopic? YES; Appearance Urine Clear (Clear); Glucose Urine UA 2+ mg/dL (Negative); Leukocyte Esterase Ur 1+ LEU/UL (Negative); Need Manual Microscopic Reviewed; Nitrate Urine Negative (Negative); Specific Grav Ur 1.021 (1.001-1.035)
[2025-06-19 12:00] VITALS: BP 96/56; PULSE 82
[2025-06-19 12:08] LABS: Total Protein Urine Random < 5 mg/dL; Ur Ttl Prot Creatinine Ratio < 0.06 mg/mg (0-0.20)
--- NOTE | 2025-06-19 12:10 | PC.NURSE ---
Called Dr. Hogan with lab results, BPs and tracing. Reactive tracing. Occasional contractions noted on tracing. Pt states that she feels some tightening, but no more than she normally feels. Orders received to PO hydrate and send urine for culture. February D/C home.
[2025-06-19 12:15] VITALS: BP 103/62; PULSE 87
== END 2025-06-19 12:20 | disposition home or self-care (01) ==
LOC: ANHOBOP 10:53 → ANHLDR 10:55
PROVIDERS: Visit Provider Obstetrics & Gynecology
DX: O13.9 Gestational [pregnancy-induced] hypertension without significant proteinuria, unspecified trimester (principal); Z3A.00 Weeks of gestation of pregnancy not specified
CPT/HCPCS: 36415; 59025; 80053; 81001; 82570; 84156; 84550; 85025; 87086; 99199

== ENCOUNTER 2025-06-19 20:56 | Outpatient (CLI) | payer OTHER, SELFPAY ==
[2025-06-19] VITALS (42 sets, daily range): BP systolic 107–130; BP diastolic 70–98; PULSE 76–99; RESP 16; TEMP 36.6; O2SAT 97–100
[2025-06-19] MEDS: diphenhydrAMINE HCl CAP 25 MG CAPSULE PO (22:53)
[2025-06-19] MEDS: METOCLOPRAMIDE HCL 10 MG TABLET PO (22:53)
[2025-06-19] MEDS: ONDANSETRON HCL ODT 4 MG TABLET PO (22:53)
[2025-06-20] VITALS (23 sets, daily range): BP systolic 109–130; BP diastolic 66–94; PULSE 81–103; O2SAT 96–100; BMI 30.2
--- NOTE | 2025-06-20 01:35 | PC.NURSE ---
Addendum entered by Lala Sesay RN 06/20/25 01:59: Pt presented earlier on day shift with complaint of headache. PIH labs were obtained at that time and resulted within normal limits. Patient returned this evening with continued headache, which she rated 8/10 and also reported having elevated blood pressures at home of 140s/90s. Blood pressures remained within normal range during triage observation. Patient was given benadryl and reglan which decreased ENCINAS to 6/10. TOCO showed contractions, which patient denied feeling and were non palpable. FHT reactive and reassuring. Patient was encourged to increase fluid intake. Cervical exam 0/0/-3. Dr. Mac updated on patient status and gave verbal orders for patient to complete 24 hour urine and follow up with her primary OB in the morning. Patient verbalized understanding of plan of care and is agreeable of going home. Pt discharged home in stable condition with return precautions given. Original Note: Pt presented earlier on day shift with complaint of headache. PIH labs were obtained at that time and resulted within normal limits. Patient returned this evening with continued headache, which she rated 8/10 and also reported having elevated blood pressures at home of 140s/90s. Blood pressures remained within normal range during triage observation. Patient was given benadryl and reglan which decreased ENCINAS to 6/10. TOCO showed contractions, which patient denied feeling. Patient was encourged to increase fluid intake. Cervical exam 0/0/-3. Dr. Mac updated on patient status and gave verbal orders for patient to complete 24 hour urine and follow up with her primary OB in the morning. Patient verbalized understanding of plan of care and is agreeable of going home. Pt discharged home in stable condition with return precautions given.
[2025-06-21 10:29] LABS: Serum Creat 0.45
[2025-06-21 10:48] LABS: Total Protein Urine Random < 5 mg/dL
[2025-06-21 10:59] LABS: Creatinine Clearance Urine 198.6 ml/min (75-125); Total Protein Urine 24 Hr 75 mg/24hr (28-141); Total Volume 24 Hour Urine 1500 ml
== END 2025-06-20 01:50 | disposition home or self-care (01) ==
LOC: ANHOBOP 21:01 → ANHOBPP 06-24 10:04
PROVIDERS: Visit Provider Obstetrics & Gynecology
DX: Z34.90 Encounter for supervision of normal pregnancy, unspecified, unspecified trimester (principal); Z3A.00 Weeks of gestation of pregnancy not specified
CPT/HCPCS: 81050; 82575; 84156; 99199; A9270

== ENCOUNTER 2025-06-26 10:12 | Observation (INO) | payer OTHER, SELFPAY ==
[2025-06-26] VITALS (25 sets, daily range): BP systolic 120–131; BP diastolic 77–83; PULSE 87–116; O2SAT 97–100
[2025-06-26 10:58] LABS: Add Urine Microscopic? NO; Appearance Urine Clear (Clear); Glucose Urine UA Negative (Negative); Leukocyte Esterase Ur Negative LEU/UL (Negative); Nitrate Urine Negative (Negative); Specific Grav Ur 1.021 (1.001-1.035)
--- OUTSIDE RECORDS SUMMARY | 2025-06-26 11:06 | XMS_ITS | Clinical Summary ---
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
--- OUTSIDE RECORDS SUMMARY | 2025-06-26 11:06 | XMS_ITS | Clinical Summary ---
Author Organization [facility] Address [address] [place] [address] Care Team Providers Care Pantograph Machine Operator Name Role Phone Unavailable Primary Care [...] Encounters Date Type Department Care Team Description 06/18/2025 External Device Data STL ABSTRACTION Provider, Abstract 06/04/2025 External Device Data STL ABSTRACTION Provider, [...] DETECTED Not Detected 06/30/2022 11:46 AM CDT [facility] GC DNA AMPLIFICATION NOT DETECTED Not Detected 06/30/2022 11:46 AM CDT [facility] Genital SWAB OF ENDOCERVIX / Unknown Collection / Unknown 06/28/2022 12:06 PM CDT 06/28/2022 12:15 PM CDT Narrative [facility] - 06/30/2022 11:46 AM CDT Results should not be used for the evaluation of suspected sexual abuse or for other medico-legal indications. The only legally accepted results are from culture. Results cannot be used to assess therapeutic success or failure since nucleic acids may persist following antimicrobial therapy. us Mali Leal MD MICROBIOLOGY - GENERAL ORDERABL ES Final Result [facility] SERVICES [facility] CLIA# [id number] [address] [place] [address] from Last 3 Months or Most Recently Relevant to Health Maintenance Insurance [employer] PLUS Member Subscriber Plan / Payer (Ef fective 2023-Present) Name:Chante Reddy Relation to Subscriber:Child Name:CHANTE REDDY Date of :1998 (Home) Address: [address] [place], [place] [address] [place] [address] Payer ID:[id number] (NAIC) Group ID:Not on file Type:Commercial Address: [address] [address] [place] [id number]
--- OUTSIDE RECORDS SUMMARY | 2025-06-26 11:06 | XMS_ITS | Clinical Summary ---
Author Organization [facility] Address [address] [place] [address] Care Team Providers Care Reservations Manager Name Role Phone None, Provider Primary Care Provider Unavaila ble Allergies No known active allergies Medications No known medications Social History Tobacco Use Types Packs/Day Years Used Date Smoking Tobacco: Never Assessed Comments Yes Sex and Gender Information Value Date Recorded Sex Assigned at Female 12/17/2024 11:45 PM CONTRACTS ADMINISTRATOR Legal Sex Female 11:35 PM CONTRACTS ADMINISTRATOR Gender Identity Not on file Sexual Orientation Not on file Last Filed Vital Signs Vital Sign Reading Time Taken Comments Blood Pressure 136/88 12/18/2024 2:58 AM CONTRACTS ADMINISTRATOR Pulse 115 12/18/2024 2:58 AM CONTRACTS ADMINISTRATOR Temperature 36.9 C (98.5 F) 12/17/2024 11:39 PM CONTRACTS ADMINISTRATOR Respiratory Rate 17 12/18/2024 2:58 AM CONTRACTS ADMINISTRATOR Oxygen Saturation 97% 12/18/2024 2:58 AM CONTRACTS ADMINISTRATOR Inhaled Oxygen Concentration - - Weight 54.9 kg (121 lb 0.5 oz) 12/17/2024 11:39 PM CONTRACTS ADMINISTRATOR Height 160 cm (5' 3) 12/17/2024 11:39 PM CONTRACTS ADMINISTRATOR Body Mass Index 21.44 12/17/2024 11:39 PM CONTRACTS ADMINISTRATOR Plan of Treatment Health Maintenance Due Date Last Done Comments Annual Physical 2001 HPV Vaccines (1 - 3-dose series) 2013 Hepatitis C 2016 DTaP, Tdap and Td Vaccines ( 1 - Tdap) 2017 Hepatitis B Vaccines (1 of 3 - 19+ 3-dose series) 2017 COVID-19 Vaccine ( - 2023-2 5 season) 2025 Cervical Cancer Screening Pa p Smear (Age [...] patient's age to complete this [place] [address] [place] [address] Care Teams Reservations Manager Relationship Specialty Start Date End Date None, Provider, PCP - General UNKNOWN PHYSICIAN SPECIALTY 12/18/24
[2025-06-26] MEDS: TERBUTALINE SULFATE 1 MG/ML VIAL 0.25 MG SUB-Q ×3 (11:57→15:25)
[2025-06-26] MEDS: CALCIUM CARBONATE (TUMS) 500 MG (200 MG ELEMENTAL) PO (17:51)
--- NOTE | 2025-06-27 07:11 | P.PNOB_ITS ---
OB - Triage/Final Diagnosis Visit Information Comments/Additional reasons for admission: I have assessed the risk for this patient, Chante Eduardo Maureen, and determined that she would benefit from observation care. Evaluation Laboratory results: Laboratory Tests 06/26/25 10:43 Urine Color Yellow Urine Appearance Clear Urine pH 7.0 Ur Specific [place] 1.021 Urine Protein Negative Urine Glucose (UA) Negative Urine Ketones Negative Ur Blood (Man) Negative Urine Nitrate Negative Urine Bilirubin Negative Urine Urobilinogen 0.2 Leukocyte Esterase Rfl Negative Vital signs: Vital Signs - 24 hr 06/26/25 10:12 06/26/25 10:25 06/26/25 10:31 Pulse Rate 96 97 Blood Pressure 131/83 120/82 Pulse Oximetry Oxygen Delivery Room Air 06/26/25 10:45 06/26/25 15:28 06/26/25 15:29 Pulse Rate 87 99 Blood Pressure 120/79 122/77 Pulse Oximetry 97 Oxygen Delivery 06/26/25 15:33 06/26/25 15:38 06/26/25 15:43 Pulse Rate Blood Pressure Pulse Oximetry 98 100 100 Oxygen Delivery 06/26/25 15:48 06/26/25 15:53 06/26/25 15:58 Pulse Rate Blood Pressure Pulse Oximetry 100 100 100 Oxygen Delivery 06/26/25 16:03 06/26/25 16:08 06/26/25 16:12 Pulse Rate Blood Pressure Pulse Oximetry 100 100 100 Oxygen Delivery 06/26/25 16:17 06/26/25 16:22 06/26/25 16:27 Pulse Rate Blood Pressure Pulse Oximetry 100 100 100 Oxygen Delivery 06/26/25 16:32 06/26/25 16:37 06/26/25 16:42 Pulse Rate Blood Pressure Pulse Oximetry 100 100 100 Oxygen Delivery 06/26/25 16:47 06/26/25 16:52 06/26/25 16:57 Pulse Rate Blood Pressure Pulse Oximetry 100 100 100 Oxygen Delivery 06/26/25 17:02 06/26/25 17:07 Pulse Rate Blood Pressure Pulse Oximetry 100 98 Oxygen Delivery Final Diagnosis (1) uterine contractions: Code(s): O47.00 - False labor before 37 completed weeks of gestation, unspecified trimester Status: Acute Plan: with no cervical change
== END 2025-06-26 18:30 | disposition home or self-care (01) ==
PROVIDERS: Admitting Provider Obstetrics & Gynecology; Visit Provider Obstetrics & Gynecology
DX: O47.03 False labor before 37 completed weeks of gestation, third trimester (principal); Z3A.34 34 weeks gestation of pregnancy
CPT/HCPCS: 81003; 96372; A9270; G0378; G0379; J3105

== ENCOUNTER 2025-07-09 18:39 | Observation (INO) | payer OTHER, SELFPAY ==
[2025-07-09 19:20] VITALS: BMI 30.4
[2025-07-09 19:24] LABS: Hematocrit 32.3 % (37.0-47.0); Hemoglobin 10.3 g/dL (12.0-15.0); Immature Granulocyte Percent A 1.0 % (0-0.5); Lymphocytes Absolute Auto 2.03 K/mm3 (0.9-3.2); Mean Corpuscular HGB Conc 31.9 g/dl (32-36); Mean Corpuscular Hemoglobin 26.9 pg (26-34); Mean Corpuscular Volume 84.3 fl (80-100); Nucleated Red Blood Cells Absolute Auto 0.000 K/mm3 (0.0-0.012); Nucleated Red Blood Cells Perc 0.0 % (0.0-0.2); Platelet Count Result 367 k/mm3 (150-375); Red Blood Count 3.83 M/mm3 (4.2-5.4); White Blood Count 13.3 K/mm3 (4.5-10.0)
[2025-07-09 19:30] VITALS: BP 125/84; PULSE 98
[2025-07-09 19:31] VITALS: BP 119/79; PULSE 99
[2025-07-09 19:38] LABS: Alanine Aminotransferase 28 U/L (6-35); Albumin Level 3.5 g/dL (3.5-5.1); Alkaline Phosphatase 162 U/L (38-126); Anion Gap 10 mmol/L (4-12); Aspartate Amino Transferase 34 U/L (14-36); Bilirubin,Total 0.5 mg/dL (0.2-1.3); Blood Urea Nitrogen 11 mg/dL (7-17); Calcium 9.1 mg/dL (8.4-10.2); Carbon Dioxide 17 mmol/L (22-30); Chloride 105 mmol/L (98-107); Estimated CRCL calculation 131 ml/min; Estimated Glomerular Filt Rate > 60; Glucose 121 mg/dL (65-110); Potassium 4.0 mmol/L (3.4-5.0); Sodium 132 mmol/L (137-145); Total Protein 6.5 g/dL (6.3-8.2); Uric Acid 5.9 mg/dL (2.5-7.5)
[2025-07-09 19:42] LABS: Add Urine Microscopic? YES; Appearance Urine Clear (Clear); Budding Yeast Urine Present /hpf; Glucose Urine UA Negative (Negative); Leukocyte Esterase Ur Trace LEU/UL (Negative); Need Manual Microscopic Reviewed; Nitrate Urine Negative (Negative); Non Pathogenic Casts 0-2; Specific Grav Ur 1.023 (1.001-1.035)
[2025-07-09 19:46] VITALS: BP 119/77; PULSE 96
[2025-07-09 20:01] VITALS: BP 118/80; PULSE 97
[2025-07-09 20:16] VITALS: BP 130/79; PULSE 100
[2025-07-09 20:28] LABS: Total Protein Urine Random < 5 mg/dL
[2025-07-09 20:31] VITALS: BP 125/84; PULSE 98
[2025-07-09 20:35] LABS: Ur Ttl Prot Creatinine Ratio < 0.04 mg/mg (0-0.20)
--- OUTSIDE RECORDS SUMMARY | 2025-07-10 08:31 | XMS_ITS | Clinical Summary ---
Author Organization [facility] Address [address] [place] [address] Care Team Providers Care Commercial Portfolio Manager Name Role Phone Unknown, Notinfile Primary Care [...] on file Legal Sex Female 9:54 AM FRONT END ALIGNMENT SPECIALIST Gender Identity Not on file Sexual [...] HPV Vaccines Completed 12/27/2011, 06/18, 02/09/2010 Insurance [facility] CHOICE PLUS [facility] H[facility]/PPO Address: [address] [place] [address] [facility] CHOICE PLUS [facility] H[facility]/PPO Address: [address] [address] [place] [address] Care Teams Commercial Portfolio Manager Relationship Specialty Start Date End Date Unknown, Notinfile PCP - General 04/12/22
--- OUTSIDE RECORDS SUMMARY | 2025-07-10 08:31 | XMS_ITS | Clinical Summary ---
Author Organization [facility] Address [address] [place] [place] [address] Care Team Providers Care Air Defense Control Officer Name Role Phone Unavailable Primary Care Provider Unavailabl e Source Comments [facility],non-owned Affiliates and Associated Physician Practices is amultiple site organization consisting of ambulatory clinics and hospital sitesin [place], [place], [place] and [place]. This disclosure is being madepursuant to the Care Everywhere program and may not contain all information available regarding this patient. Last updated 18.[facility] [employer] Allergies No known active allergies Medications * [...] on file Legal Sex Female 5:41 AM SWIMMING POOL ATTENDANT Gender Identity Not on file Sexual Orientation Not on file Last Filed Vital Signs Vital Sign Reading Time Taken Comments Blood Pressure 102/74 04/23/2024 3:24 PM CDT Pulse 88 09/18/2014 1:21 AM SWIMMING POOL ATTENDANT Temperature 35.7 C (96.2 F) 09/18/2014 1:21 AM SWIMMING POOL ATTENDANT Respiratory Rate 22 09/18/2014 1:21 AM SWIMMING POOL ATTENDANT Oxygen Saturation 99% 09/17/2014 6:16 PM SWIMMING POOL ATTENDANT Inhaled Oxygen Concentration - - Weight 57.6 kg (127 lb) 04/23/2024 3:24 PM CDT Height 160 cm (5' 3) 04/23/2024 3:24 PM CDT Body Mass Index 22.5 04/23/2024 3:24 PM CDT Plan of Treatment Upcoming Encounters Date Type Department Care Team (Late st Contact Info) Description 08/15/2025 11:00 AM CDT Office Visit [facility] - Endocrinology [address] [facility], [address] [place] [address] Yury Caro MD [address] [facility] [address] [place] [address] Health Maintenance Due Date Last Done Comments HIV SCREENING 2013 HPV VACCINE (1 - 3-dose series) 2013 HEPATITIS C SCREENING 07/13/2016 DTAP/TDAP/TD VACCINES (1 - Tdap) 2017 HEPATITIS B VACCINE (1 of 3 - 19+ 3-dose series) 2017 PAP SMEAR 2019 DEPRESSION SCREENING 10/17/2024 COVID-19 VACCINE (1 - 2023-2 5 season) 2025 INFLUENZA VACCINE (#1) 2025 ZOSTER VACCINE (1 [...]
--- OUTSIDE RECORDS SUMMARY | 2025-07-10 08:31 | XMS_ITS | Clinical Summary ---
Author Organization [facility] Address [address] [place] [address] Care Team Providers Care Building Contractor Name Role Phone Unavailable Primary Care Provider [...] Not Detected 06/30/2022 11:46 AM CDT [facility] GC DNA AMPLIFICATION NOT DETECTED Not Detected 06/30/2022 11:46 AM CDT [facility] Genital SWAB OF ENDOCERVIX / Unknown Collection / Unknown 06/28/2022 12:06 PM CDT 06/28/2022 12:15 PM CDT Narrative [facility] - 06/30/2022 11:46 AM CDT Results should not be used for the evaluation of suspected sexual abuse or for other medico-legal indications. The only legally accepted results are from culture. Results cannot be used to assess therapeutic success or failure since nucleic acids may persist following antimicrobial therapy. Mali Leal MD MICROBIOLOGY - GENERAL ORDERABL ES Final Result [facility]# [id number] [place] [address] from Last 3 Months or Most Recently Relevant to Health Maintenance Insurance [employer] PLUS [employer] [phone]
--- NOTE | 2025-07-10 09:03 | PM.OBTRLD ---
OB - Triage/Final Diagnosis Visit Information Comments/Additional reasons for admission: I have assessed the risk for this patient, Chante A Maureen, and determined that she would benefit from observation care. Evaluation Laboratory results: Laboratory Tests 07/09/25 18:57 WBC 13.3 H RBC 3.83 L Hgb 10.3 L Hct 32.3 L MCV 84.3 MCH 26.9 MCHC 31.9 L RDW 14.2 Plt Count 367 MPV 11.3 H Immature Gran % (Auto) 1.0 H Neut % (Auto) 70.8 Lymph % (Auto) 15.3 L [place] % (Auto) 8.8 H Eos % (Auto) 3.9 Baso % (Auto) 0.2 Lymph # (Auto) 2.03 [place] # (Auto) 1.2 H Eos # (Auto) 0.5 H Baso # (Auto) 0.0 Abs Immat Gran (auto) 0.13 H Absolute Neuts (auto) 9.4 H Absolute Nucleated RBC 0.000 Nucleated RBC % 0.0 Sodium 132 L Potassium 4.0 Chloride 105 Carbon Dioxide 17 L Anion Gap 10 BUN 11 Creatinine 0.54 L Estim Creat Clear Calc 131 Estimated GFR > 60 Glucose 121 H Uric Acid 5.9 Calcium 9.1 Total Bilirubin 0.5 AST 34 ALT 28 Alkaline Phosphatase 162 H Total Protein 6.5 Albumin 3.5 Urine Color Yellow Urine Appearance Clear Urine pH 6.5 Ur Specific [place] 1.023 Urine Protein Trace Urine Glucose (UA) Negative Urine Ketones Trace H Ur Blood (Man) Negative Urine Nitrate Negative Urine Bilirubin Negative Urine Urobilinogen 0.2 Add Ur Microanalysis Reviewed Leukocyte Esterase Rfl Trace H Urine RBC 0-2 Urine WBC 11-20 H Ur Squamous Epith Cells Few Urine Bacteria 2+ H Urine Casts 0-2 Urine Yeast (Budding) Present H U Random Total Protein < 5 Urine Creatinine 137.3 Protein/Creat Ratio 2 < 0.04 Vital signs: Vital Signs - 24 hr 07/09/25 19:30 07/09/25 19:31 07/09/25 19:46 Pulse Rate 98 99 96 Blood Pressure 125/84 119/79 119/77 Blood Pressure [Left Arm] 07/09/25 20:01 07/09/25 20:16 07/09/25 20:31 Pulse Rate 97 100 98 Blood Pressure 118/80 130/79 Blood Pressure [Left Arm] 125/84 Final Diagnosis (1) Gestational hypertension: Code(s): O13.9 - Gestational [-induced] hypertension without significant proteinuria, unspecified trimester Status: Acute
== END 2025-07-09 20:43 | disposition home or self-care (01) ==
LOC: ANHOBPP 20:42 → ANHOBOP 07-10 08:20 → ANHLDR 07-10 08:23
PROVIDERS: Admitting Provider Obstetrics & Gynecology; Visit Provider Obstetrics & Gynecology
DX: O13.3 Gestational [pregnancy-induced] hypertension without significant proteinuria, third trimester (principal); Z3A.36 36 weeks gestation of pregnancy
CPT/HCPCS: 36415; 59025; 80053; 81001; 82570; 84156; 84550; 85025; 87086; G0378; G0379

== ENCOUNTER 2025-07-12 13:50 | Outpatient (RCR) | payer OTHER, SELFPAY ==
--- NOTE | 2025-07-05 16:10 | PC.NURSE ---
Called Dr. Castro with pt status. Informed of BP and increased swelling with 1+ pitting edema in her lower extremities. NST nonreactive. Orders received for BPP and PIH labs. Call with results.
[2025-07-05 16:48] LABS: Hematocrit 30.3 % (37.0-47.0); Hemoglobin 9.7 g/dL (12.0-15.0); Immature Granulocyte Percent A 0.9 % (0-0.5); Lymphocytes Absolute Auto 2.17 K/mm3 (0.9-3.2); Mean Corpuscular HGB Conc 32.0 g/dl (32-36); Mean Corpuscular Hemoglobin 27.2 pg (26-34); Mean Corpuscular Volume 85.1 fl (80-100); Nucleated Red Blood Cells Absolute Auto 0.000 K/mm3 (0.0-0.012); Nucleated Red Blood Cells Perc 0.0 % (0.0-0.2); Platelet Count Result 338 k/mm3 (150-375); Red Blood Count 3.56 M/mm3 (4.2-5.4); White Blood Count 13.6 K/mm3 (4.5-10.0)
[2025-07-05 16:58] VITALS: BP 145/96; PULSE 91
[2025-07-05 17:07] LABS: Alanine Aminotransferase 18 U/L (6-35); Albumin Level 3.3 g/dL (3.5-5.1); Alkaline Phosphatase 157 U/L (38-126); Anion Gap 5 mmol/L (4-12); Aspartate Amino Transferase 29 U/L (14-36); Bilirubin,Total 0.4 mg/dL (0.2-1.3); Blood Urea Nitrogen 11 mg/dL (7-17); Calcium 9.2 mg/dL (8.4-10.2); Carbon Dioxide 21 mmol/L (22-30); Chloride 105 mmol/L (98-107); Estimated Glomerular Filt Rate > 60; Glucose 79 mg/dL (65-110); Potassium 3.9 mmol/L (3.4-5.0); Sodium 131 mmol/L (137-145); Total Protein 6.1 g/dL (6.3-8.2); Uric Acid 4.8 mg/dL (2.5-7.5)
[2025-07-05 17:38] LABS: Total Protein Urine Random 8 mg/dL; Ur Ttl Prot Creatinine Ratio 0.17 mg/mg (0-0.20)
--- NOTE | 2025-07-05 17:43 | PC.NURSE ---
Called Dr. Castro with lab results and BPs. Informed of contractions noted on tracing. Pt has polyhydramnios. Orders received to D/C home with preeclampsia precautions.
[2025-07-05 17:55] LABS: Add Urine Microscopic? YES; Appearance Urine Cloudy (Clear); Glucose Urine UA Negative (Negative); Leukocyte Esterase Ur 1+ LEU/UL (Negative); Need Manual Microscopic Reviewed; Nitrate Urine Negative (Negative); Non Pathogenic Casts 0-2; Specific Grav Ur 1.014 (1.001-1.035)
--- NOTE | ~2025-07-12 | US_ITS ---
EXAMINATION: US OB BPP wo non-stress DATE: 07/05/2025 17:32 INDICATION: Decreased movement. Polyhydramnios. Nonreactive nonstress test. Third trimester. TECHNIQUE: Real-time pelvic ultrasound was performed. COMPARISON: Ultrasound 07/03/2020 FINDINGS: There is a single living fetus in vertex presentation. The placenta is anterior. heart rate is 159 beats per minute (bpm). The amniotic fluid index is 16.3 cm which is normal. Biophysical profile performed by the technologist: breathing (30 sec sustained breathing in 30 minutes): 2 out of 2 movement (3 gross body movements in 30 minutes): 2 out of 2 tone (one episode of ypxyhmo-cjpkbziot-tkbsjpw limb movement): 2 out of 2 Amniotic fluid pocket (2 cm): 2 out of 2 Total score: 8 out of 8 IMPRESSION: 1. Single living fetus in vertex presentation. 2. Biophysical profile 8 out of 8. Reviewed, dictated and finalized at location E.
[2025-07-12 14:23] VITALS: BP 117/77; PULSE 102
== END 2025-07-17 17:42 | disposition other institution (70) ==
LOC: ANHOBOP 13:50
PROVIDERS: Obstetrics & Gynecology; Visit Provider Obstetrics & Gynecology
DX: O40.3XX0 Polyhydramnios, third trimester, not applicable or unspecified (principal); Z3A.35 35 weeks gestation of pregnancy
CPT/HCPCS: 36415; 59025; 76819; 80053; 81001; 82570; 84156; 84550; 85025; 87086

== ENCOUNTER 2025-07-16 16:16 | Inpatient (IN) | payer OTHER, SELFPAY ==
[2025-07-16] VITALS (30 sets, daily range): BP systolic 103–139; BP diastolic 63–95; PULSE 82–108; RESP 15; TEMP 36.8; O2SAT 99–100; BMI 30.4
--- OUTSIDE RECORDS SUMMARY | 2025-07-16 16:21 | XMS_ITS | Clinical Summary ---
Author Organization [facility] Address [address] [place] [address] Care Team Providers Care Strip Presser Name Role Phone Unavailable Primary Care Provider [...] DETECTED Not Detected 06/30/2022 11:46 AM CDT [facility] GC DNA AMPLIFICATION NOT DETECTED Not Detected 06/30/2022 11:46 AM CDT [facility] Genital SWAB OF ENDOCERVIX / Unknown Collection / Unknown 06/28/2022 12:06 PM CDT 06/28/2022 12:15 PM CDT Narrative [facility] - 06/30/2022 11:46 AM CDT Results should not be used for the evaluation of suspected sexual abuse or for other medico-legal indications. The only legally accepted results are from culture. Results cannot be used to assess therapeutic success or failure since nucleic acids may persist following antimicrobial therapy. Mali Leal MD MICROBIOLOGY - GENERAL ORDERABL ES Final Result [facility]# [id number] [place] [address] from Last 3 Months or Most Recently Relevant to Health Maintenance Insurance [employer] PLUS [employer] [id number]
--- OUTSIDE RECORDS SUMMARY | 2025-07-16 16:21 | XMS_ITS | Clinical Summary ---
Author Organization [facility] Address [address] [facility] [place] [address] Care Team Providers Care Boat Operator Name Role Phone Unavailable Primary Care Provider Unavailabl e Source Comments [facility],non-owned Affiliates and Associated Physician Practices is amultiple site organization consisting of ambulatory clinics and hospital sitesin [place], [place], [place] and [place]. This disclosure is being madepursuant to the Care Everywhere program and may not contain all information available regarding this patient. Last updated 18.[facility] Allergies No known active allergies Medications * [...] on file Legal Sex Female 5:41 AM CNC GRINDER Gender Identity Not on file Sexual Orientation Not on file Last Filed Vital Signs Vital Sign Reading Time Taken Comments Blood Pressure 102/74 04/23/2024 3:24 PM CDT Pulse 88 09/18/2014 1:21 AM CNC GRINDER Temperature 35.7 C (96.2 F) 09/18/2014 1:21 AM CNC GRINDER Respiratory Rate 22 09/18/2014 1:21 AM CNC GRINDER Oxygen Saturation 99% 09/17/2014 6:16 PM CNC GRINDER Inhaled Oxygen Concentration - - Weight 57.6 kg (127 lb) 04/23/2024 3:24 PM CDT Height 160 cm (5' 3) 04/23/2024 3:24 PM CDT Body Mass Index 22.5 04/23/2024 3:24 PM CDT Plan of Treatment Upcoming Encounters Date Type Department Care Team (Late st Contact Info) Description 08/15/2025 11:00 AM CDT Office Visit [facility] - Endocrinology [address] [facility], [address] [place] [address] Yury Caro MD [address] [facility] [address] [place] [address] Health Maintenance Due Date Last [...]
--- OUTSIDE RECORDS SUMMARY | 2025-07-16 16:21 | XMS_ITS | Clinical Summary ---
Author Organization [facility] Address [address] [place] [address] Care Team Providers Care Independent Agent Music Education Name Role Phone Unknown, Notinfile Primary Care [...] on file Legal Sex Female 9:54 AM MASH FILTER OPERATOR Gender Identity Not on file Sexual [...] HPV Vaccines Completed 12/27/2011, 06/18, 02/09/2010 Insurance [facility] CHOICE PLUS [facility] CHOICE PLUS Care Teams Independent Agent Music Education Relationship Specialty Start Date End Date Unknown, Notinfile PCP - General 04/12/22
[2025-07-16 17:19] LABS: Hematocrit 33.6 % (37.0-47.0); Hemoglobin 10.6 g/dL (12.0-15.0); Immature Granulocyte Percent A 0.8 % (0-0.5); Lymphocytes Absolute Auto 2.24 K/mm3 (0.9-3.2); Mean Corpuscular HGB Conc 31.5 g/dl (32-36); Mean Corpuscular Hemoglobin 26.7 pg (26-34); Mean Corpuscular Volume 84.6 fl (80-100); Nucleated Red Blood Cells Absolute Auto 0.000 K/mm3 (0.0-0.012); Nucleated Red Blood Cells Perc 0.0 % (0.0-0.2); Platelet Count Result 355 k/mm3 (150-375); Red Blood Count 3.97 M/mm3 (4.2-5.4); White Blood Count 13.9 K/mm3 (4.5-10.0)
[2025-07-16 17:31] LABS: Alanine Aminotransferase 18 U/L (6-35); Albumin Level 3.8 g/dL (3.5-5.1); Alkaline Phosphatase 208 U/L (38-126); Anion Gap 9 mmol/L (4-12); Aspartate Amino Transferase 31 U/L (14-36); Bilirubin,Total 0.6 mg/dL (0.2-1.3); Blood Urea Nitrogen 14 mg/dL (7-17); Calcium 9.1 mg/dL (8.4-10.2); Carbon Dioxide 17 mmol/L (22-30); Chloride 103 mmol/L (98-107); Estimated Glomerular Filt Rate > 60; Glucose 71 mg/dL (65-110); Potassium 4.3 mmol/L (3.4-5.0); Sodium 129 mmol/L (137-145); Total Protein 7.1 g/dL (6.3-8.2); Uric Acid 6.0 mg/dL (2.5-7.5)
[2025-07-16] MEDS: LACTATED RINGERS 1,000 ML 125 ML IV CONT ×3 (17:43→23:59)
--- NOTE | 2025-07-16 17:52 | LDADM ---
This patient, Chante Reddy, was admitted to Labor/Delivery/Recovery 103 on 07/16/25 at 16:16. Plans for labor, pain management and were discussed with patient. Patient/family oriented to hospital policies and general routines including ID bracelet, bed and alarms, visiting hours, pain management, procedures, bathroom and other care routines, personal items, smoking policy, room service/diet and guest tray routines, infant security routines, and visiting hours. Patient/Family are encouraged to report perceived risks to care and to ask questions if they do not understand what they are told or what they should do. See OBIX for further documentation.
[2025-07-16 17:58] LABS: Syphilis IgG/IgM Antibody Non-Reactive (Nonreactive)
--- NOTE | 2025-07-16 18:44 | WPDANESEPP ---
Anes - Eval Pre Procedure Procedure: Labor epidural Date/Time: 07/16/25 18:44 Surgeon: Edison Preop Diagnosis: Abdominal pain with contractions Pre Op Diagnosis: IOL Patient Data Age: 24 Gender: F Height: 1.6 m Weight: 78 kg Last Vital Signs Pulse 91 07/16/25 18:30 BP 120/82 07/16/25 18:30 O2 Del Method Room Air 07/16/25 16:00 Allergies Allergy/AdvReac Type Severity Reaction Status Date / Time No Known Allergies Allergy Verified 07/12/25 13:31 Home Medications ?Medication ?Instructions ?Recorded ?Confirmed ?Type docosahexaenoic acid 200 mg mg PO 12/19/24 07/09/25 History capsule ( DHA) Laboratory Tests 07/16/25 07/16/25 16:31 17:14 WBC 13.9 H K/mm3 (4.5-10.0) RBC 3.97 L M/mm3 (4.2-5.4) Hgb 10.6 L g/dL (12.0-15.0) Hct 33.6 L % (37.0-47.0) MCV 84.6 fl (80-100) MCH 26.7 pg (26-34) MCHC 31.5 L g/dl (32-36) RDW 14.4 % (11.5-14.5) Plt Count 355 k/mm3 (150-375) MPV 11.7 H fl (7.4-10.4) Immature Gran % (Auto) 0.8 H % (0-0.5) Neut % (Auto) 70.4 % (45.5-73.1) Lymph % (Auto) 16.2 L % (18.3-44.2) [place] % (Auto) 9.8 H % (2.6-8.5) Eos % (Auto) 2.5 % (0-4.4) Baso % (Auto) 0.3 % (0.2-1.2) Lymph # (Auto) 2.24 K/mm3 (0.9-3.2) [place] # (Auto) 1.4 H K/mm3 (0.1-0.6) Eos # (Auto) 0.3 K/mm3 (0-0.3) Baso # (Auto) 0.0 K/mm3 (0.0-0.1) Abs Immat Gran (auto) 0.11 H K/mm3 (0.00-0.031) Absolute Neuts (auto) 9.8 H K/mm3 (1.3-6.7) Absolute Nucleated RBC 0.000 K/mm3 (0.0-0.012) Nucleated RBC % 0.0 % (0.0-0.2) Sodium 129 L mmol/L (137-145) Potassium 4.3 mmol/L (3.4-5.0) Chloride 103 mmol/L (98-107) Carbon Dioxide 17 L mmol/L (22-30) Anion Gap 9 mmol/L (4-12) BUN 14 mg/dL (7-17) Creatinine 0.58 L mg/dL (0.7-1.0) Estim Creat Clear Calc Not Reportable Estimated GFR > 60 (59 - ) Glucose 71 mg/dL (65-110) Uric Acid 6.0 mg/dL (2.5-7.5) Calcium 9.1 mg/dL (8.4-10.2) Total Bilirubin 0.6 mg/dL (0.2-1.3) AST 31 U/L (14-36) ALT 18 U/L (6-35) Alkaline Phosphatase 208 H U/L (38-126) Total Protein 7.1 g/dL (6.3-8.2) Albumin 3.8 g/dL (3.5-5.1) Syphilis IgG/IgM Ab Non-reactive (Nonreactive) Blood Type O Positive Antibody Screen Negative : gestational age HCG: positive Patient hx anesthesia problems: none Family hx anesthesia problems: none Results Review: All pre-operative results and documents have been reviewed as part of the pre-operative evaluation. [facility] Past Medical History Medical History Overweight (BMI 25.0-29.9) Gestational hypertension Amenorrhea Surgical History Surgical History History of removal of ovarian cyst 2018 History of appendectomy Family History Family History Other Patient denies significant medical history Social History Social History Smoking status: Never smoker Alcohol intake: former Substance use: never Substance use type: does not use Do You Feel Safe in your Home?: Yes Lack of Transportation: No Lack of Food: Never True Current Housing: I Have Housing Concerned About Future Housing: No Difficulty Paying Gas/Electric Bills: No Difficulty Paying for Meds: No Currently Unemployed: No Education: High School Diploma/GED Difficulty w/ Childcare or Family Care: No Living arrangements: alone Occupation/Education: occupation Additional occupation/education comments: [employer] Gender identity (if verbalized by the patient): Female Sexual Orientation (if Verbalized by the Patient): Straight or Heterosexual Spiritual care concerns: No Exam Day of Procedure 07/16/25 18:44 Patient weight: overweight Lungs: clear to auscultation Airway: Mallampati scale
--- NOTE | 2025-07-16 21:15 | P.HP_ITS ---
H&P: HPI History of Present Illness Date/Time: 07/16/25 21:15 Chief Complaint: Medical induction of labor Narrative: Chante is a 24yo @ 37.1wks who presented overnight for medical IOL. She has been diagnosed with GHTN and has been undergoing testing which has been reassuring; was noted to have mild polyhydramnios as well. She had some labor contractions but did not make cervical change a couple weeks ago as well. She reports good movements. No VB or LOF. She denies ENCINAS, vision changes, CP, SOB. Her is complicated by: - varicella non-immune - Gestational HTN - mild polyhydramnios Review of Systems Constitutional: Constitutional: Denies chills, Denies fever(s) and Denies headache(s) Eyes: Eyes: Denies change in vision ENT: Denies headache(s) Cardiovascular: Cardiovascular: Denies chest pain and Denies dyspnea Respiratory: Respiratory: Denies dyspnea Genitourinary: Genitourinary: Denies abnormal vaginal bleeding and Denies vaginal discharge Neurologic: Denies headache(s) Psychiatric: Psychiatric: Denies anxiety and Denies depression [facility] Past Medical History Medical History Overweight (BMI 25.0-29.9) Gestational hypertension Amenorrhea Surgical History Surgical History History of removal of ovarian cyst 2018 History of appendectomy Family History Family History Other Patient denies significant medical history Social History Social History Smoking status: Never smoker Alcohol intake: former Substance use: never Substance use type: does not use Do You Feel Safe in your Home?: Yes Lack of Transportation: No Lack of Food: Never True Current Housing: I Have Housing Concerned About Future Housing: No Difficulty Paying Gas/Electric Bills: No Difficulty Paying for Meds: No Currently Unemployed: No Education: High School Diploma/GED Difficulty w/ Childcare or Family Care: No Living arrangements: alone Occupation/Education: occupation Additional occupation/education comments: [employer] Gender identity (if verbalized by the patient): Female Sexual Orientation (if Verbalized by the Patient): Straight or Heterosexual Spiritual care concerns: No Meds Home Medications and Allergies Home Medications ?Medication ?Instructions ?Recorded ?Confirmed ?Type docosahexaenoic acid 200 mg mg PO 12/19/24 07/09/25 Hi story capsule ( DHA) Allergies Allergy/AdvReac Type Severity Reaction Status Date / Time No Known Allergies Allergy Verified 07/12/25 13:31 Exam Const: General: cooperative, healthy appearing, comfortable and no acute distress Orientation/consciousness: patient oriented x3 Resp: Effort & Inspection: normal respiratory effort Cardio: Rate: regular rate GI: GI Palp: No abdominal tenderness : Other: FHT's: 140's/ mod dalton/ + accels/ no decels - cat 1 TOCO: ctxs q1-4min Cervix: 1.5/60/-3, soft, ant Membranes: intact Presentation: cephalic Skin: General skin exam: normal color Neuro: General: patient oriented x3 Extrem: General: normal to inspection Psych: Appearance: grossly normal Affect: normal affect Attitude: cooperative Assessment and Plan Assessment and plan (1) Gestational hypertension: Qualifiers: Trimester: third trimester Qualified Code(s): O13.3 - Gestational [-induced] hypertension without significant proteinuria, third trimester Code(s): O13.9 - Gestational [-induced] hypertension without significant proteinuria, unspecified trimester Status: Acute Plan - Admitted overnight for medical induction of labor; risks and benefits di scussed - unable to place cervidil due to too frequent of contractions but cervix still not favorable - Cook balloon placed at 2120 w/ 60/60cc in each balloon - Low dose pitocin per protocol to 10mu - Continuous monitoring - GBS neg - Anesthesia consult PRN pain
[2025-07-16] MEDS: OXYTOCIN 30 UNITS/NS 500 ML 30 UNITS/500 ML BAG IV CONT (21:46)
[2025-07-16] MEDS: LACTATED RINGERS 500 ML 999 ML IV CONT (23:30)
[2025-07-17] VITALS (189 sets, daily range): BP systolic 92–149; BP diastolic 49–115; PULSE 76–117; RESP 14–16; TEMP 36.5–37.3; O2SAT 95–100
[2025-07-17] MEDS: ACETAMINOPHEN 500 MG TABLET 1000 MG PO ×2 (01:55→07:33)
--- NOTE | 2025-07-17 07:00 | PM.OBPNLAB ---
Pain Control Date/time seen: 07/17/25 07:00 Pain control: epidural Pelvic Exam Dilation (cm): 5 (.5) Effacement (%): 60 station: -2 Amniotic membrane status: Ruptured (AROM, clear 0655) Contractions Monitor mode: External Contraction frequency: 2 Status status: Category l Assessment and Plan Pitocin rate (mU/min): 10 Assessment: induction ongoing Plan: continuous present management
[2025-07-17] MEDS: ONDANSETRON INJ 4 MG/2 ML VIAL IV PUSH (07:32)
[2025-07-17] MEDS: LACTATED RINGERS 1,000 ML 125 ML IV CONT (07:52)
--- NOTE | 2025-07-17 12:00 | PM.OBPRVD ---
OB - Vaginal Delivery Note Procedure Delivery date: 07/17/25 Events: Gestational Hypertension and Polyhydramnios Induction method: Other (Cook balloon) Delivery augmentation: Rupture of Membranes and Pitocin Delivery monitor: External FHT and External Uterine Route of delivery: Episiotomy description: None Laceration Description: None Specimen: Yes (placenta) Quantitative Blood Loss (ml): 350 Anesthesia type: Epidural Disposition: Floor Complications: No immediate complications [place] Baby Date of : 07/17/25 Time of : 11:43 Gestational Age by Date: 37 (2) gender: Female Weight (pounds): 7 Weight (ounces): 11 presentation: vertex position: Left Occiput Anterior Placenta delivery description: Expressed Cord Vessel Description: 3 Vessels and Delayed Cord Clamping score one minute: 8 score five minutes: 8 Narrative: Chante rapidly progressed to complete dilation with strong desire to push. She pushed for approximately 50 minutes with good maternal effort. She delivered the head over intact perineum. No nuchal cord was palpated. She easily delivered the infant's shoulders and body without complication. The was immediately placed skin to skin and and stimulated by the pediatric nurse and cry was heard. Delayed cord clamping was performed. The umbilical cord was then doubly clamped and cut by dad. A segment of the cord was collected for cord gases. The remaining cord blood was collected for typing. With Pitocin running and gentle downward traction on the cord, the placenta delivered without complication. Bimanual massage was performed and good uterine tone with minimal bleeding was noted. She was examined and no lacerations were identified. Sponge, lap, instrument, and needle counts were correct at the end of the procedure. Mom and baby were left bonding in the birthing suite in stable condition.
[2025-07-17] MEDS: IBUPROFEN 600 MG TABLET PO ×2 (12:39→22:56)
[2025-07-17] MEDS: WITCH HAZEL 40 PADS 1 PAD TOPICAL (12:40)
[2025-07-17] MEDS: BENZOCAINE 20% AER SPR (*SP) 56 GM CAN 1 SPRAY TOPICAL (12:40)
--- NOTE | 2025-07-17 12:50 | S_PTH ---
PATIENT: Chante Reddy LOC: [facility] U#:[id number] AGE/SX: 25/F ROOM: 282 RE07/16/[address]: Desi Hogan MD : [id number] BED: 00 DIS: 07/19/2025 SPEC #: [id number] RECD: 07/17/25 14:02 STATUS: CALVIN REEugene #: [id number] HILARY: 07/17/25 12:[address]: Desi Hogan DEPT: [facility] Surgical RECD BY: Klaudia Loomis ENTERED: 07/17/25 14:02 SP TYPE: Surgical OTHR DR: MANAGER PAID PHYSICIAN Tissues: A - Placenta Procedures: Hematoxylin and Eosin Stain Gross and Microscopic Level 5
--- NOTE | 2025-07-17 14:25 | PC.NURSE ---
Patient transferred to post room #282 via wheelchair. Support person present. Oriented to unit, room, information board, rooming in, admission packet and security measures. Patient verbalizes understanding.
--- NOTE | 2025-07-17 16:25 | PC.NURSE ---
Called to patient bedside to assist with latching . Upon entering room - FOB was holding infant. Infant was swaddled and sleeping. Demonstrated unswaddling to wake for feeding. was easily arousable and showing feeding cues once awake. was positioned by this RN in football position on mothers right side. Mother handles well with minimal assistance. Infant was able to latch on the right breast without pain to mother. Mother instructed to call this RN if further assistance is needed or any questions arise.
[2025-07-17] MEDS: ACETAMINOPHEN 325 MG TABLET 650 MG PO ×2 (17:10→22:55)
[2025-07-18 00:30] VITALS: BP 130/84; PULSE 74; RESP 12; TEMP 36.7; O2SAT 100
[2025-07-18 04:30] VITALS: BP 136/84; PULSE 77; RESP 14; TEMP 37.1; O2SAT 100
[2025-07-18 05:21] LABS: Hematocrit 31.6 % (37.0-47.0); Hemoglobin 9.4 g/dL (12.0-15.0); Mean Corpuscular HGB Conc 29.7 g/dl (32-36); Mean Corpuscular Hemoglobin 26.8 pg (26-34); Mean Corpuscular Volume 90.0 fl (80-100); Platelet Count Result 291 k/mm3 (150-375); Red Blood Count 3.51 M/mm3 (4.2-5.4); White Blood Count 18.4 K/mm3 (4.5-10.0)
[2025-07-18] MEDS: ACETAMINOPHEN 325 MG TABLET 650 MG PO ×2 (05:23→18:26)
[2025-07-18] MEDS: IBUPROFEN 600 MG TABLET PO ×2 (05:24→18:26)
--- NOTE | 2025-07-18 07:18 | PM.OBPNVD ---
OB - PN: Subj Subjective Date/time seen: 07/18/25 07:18 Narrative: PPD#1 Chante reports doing well today. 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 Her pain is controlled. She is tolerating regular diet, voiding, passing gas, and ambulating without issues. She is breast feeding. OB - PN: Obj Data Labs 07/18/25 04:45 07/16/25 17:14 Labs: Laboratory Results - last 24 hr 07/18/25 04:45 WBC 18.4 H RBC 3.51 L Hgb 9.4 L Hct 31.6 L MCV 90.0 D MCH 26.8 MCHC 29.7 L RDW 14.7 H Plt Count 291 MPV 11.3 H OB - PN A/P Assessment and Plan (1) Normal vaginal delivery of first : Code(s): O80 - Encounter for full-term uncomplicated delivery Status: Acute (2) Gestational hypertension: Qualifiers: Trimester: third trimester Qualified Code(s): O13.3 - Gestational [-induced] hypertension without significant proteinuria, third trimester Code(s): O13.9 - Gestational [-induced] hypertension without significant proteinuria, unspecified trimester Status: Acute Plan day: 1 Plan: routine care Comments: - PO pain meds - Regular diet - Ambulation and hydration encouraged - Continue putting baby to breast q2-3hr Time Spent With Patient Time: Total time spent is greater than 50% in coordination of care (as documented) at patient's floor/unit and/or counseling patient: Review of Systems Constitutional: Constitutional: Denies chills, Denies fever(s) and Denies headache(s) Eyes: Eyes: Denies change in vision ENT: Denies dizziness and Denies headache(s) Cardiovascular: Cardiovascular: Denies chest pain, Denies palpitations and Denies dyspnea Respiratory: Respiratory: Denies cough and Denies dyspnea Gastrointestinal: Gastrointestinal: Denies nausea and Denies vomiting Neurologic: Denies dizziness and Denies headache(s) Endocrine: Endocrine: Denies palpitations Exam Const: General: cooperative, comfortable and no acute distress Orientation/consciousness: patient oriented x3 Resp: Effort & Inspection: normal respiratory effort Auscultation: clear to auscultation bilaterally Cardio: Rate: regular rate GI: Inspection: non-distended GI Palp: No abdominal tenderness and Yes Soft to palpation Auscultation: normal bowel sounds : Other: fundus firm Skin: General skin exam: normal color Neuro: General: patient oriented x3 Extrem: General: normal to inspection Psych: Appearance: grossly normal Affect: normal affect Attitude: cooperative
[2025-07-18 07:20] VITALS: BP 134/88; PULSE 87; RESP 16; TEMP 37.2; O2SAT 98
[2025-07-18] MEDS: DOCUSATE SODIUM 100 MG CAPSULE PO ×2 (09:11→15:32)
[2025-07-18] MEDS: MULTIVIT/MIN/PREN/FOL AC/IRON TABLET 1 TAB PO (09:11)
[2025-07-18 11:10] VITALS: BP 113/88; PULSE 112; RESP 18; O2SAT 98
--- NOTE | 2025-07-18 11:57 | PC.NURSE ---
Consulted with patient to assess needs related to . Discussed with mother her successes, concerns and any questions she has. We reviewed working with the , supporting breast, protecting her nipples with an optimal deep latch, good positioning, and good hand washing. Encouraged understanding the benefits of skin to skin, responding to feeding cues, frequencies of feeding 8-12 times in 24 hours (approximately 2-3 hours), duration of feedings, milk production, intake/output feeding sheet and signs of adequate intake encouraging swallowing at the breast. Reviewed positioning and alignment, supporting breast, off-centered (asymmetrical latch) and leading with the chin with big, open, wide gape. latched optimally to the [right] breast in [football] position. Education given to the mother of how to visualize the suckling (with good rocking jaw motion) swallows (dropping of the lower jaw) and how to listen for drinking at the breast (the ka sound). The infant was [able] to maintain latch without discomfort to mother. Nipple care reviewed with optimal latch, good positioning and using clean hands when touching her breast. Resources used to facilitate learning were used from the [visual handouts/ tool/mom and baby guide]. Mother voiced understanding of the education shared, to call for assistance if the does not latch or if there is discomfort with . Reported to the Primary RN.
--- NOTE | 2025-07-18 14:41 | WPDANLDPN2 ---
Anes-Prog Note L&D Date/Time: 07/18/25 14:41 Comfortable throughout: labor and delivery Neuraxial method: epidural Epidural/Spinal procedure site: tender Neuro status: Neuro function grossly intact. Vital Signs: Last Vital Signs Temp 37.2 C 07/18/25 07:20 Pulse 112 H 07/18/25 11:10 Resp 18 07/18/25 11:10 BP 113/88 07/18/25 11:10 Pulse Ox 98 07/18/25 11:10 O2 Del Method Room Air 07/17/25 07:42 Pain score (VAS): 0 I/O: Intake & Output 07/17/25 07/18/25 07/18/25 23:59 07:59 15:59 Intake Total 100 Output Total 500 Balance 100 -500 Patient feedback: Patient satisfied with anesthetic care.
[2025-07-18 15:40] VITALS: BP 117/72; PULSE 98; RESP 20
[2025-07-18 19:15] VITALS: BP 130/94; PULSE 85; RESP 14; TEMP 36.6; O2SAT 100
[2025-07-19] VITALS: BP 136/90
[2025-07-19] MEDS: ACETAMINOPHEN 325 MG TABLET 650 MG PO (01:08)
[2025-07-19] MEDS: IBUPROFEN 600 MG TABLET PO (01:08)
[2025-07-19 05:30] VITALS: BP 140/92; PULSE 87; RESP 14; TEMP 36.8; O2SAT 99
--- NOTE | 2025-07-19 06:05 | P.DS_ITS ---
DS: Admitting Diagnosis Discharge Date 07/19/25 Admitting Diagnosis Gestational hypertension mild polyphydramnios DS: Discharge Diagnosis Discharge Diagnosis (1) Normal vaginal delivery of first : Code(s): O80 - Encounter for full-term uncomplicated delivery Status: Acute (2) Gestational hypertension: Qualifiers: Trimester: third trimester Qualified Code(s): O13.3 - Gestational [-induced] hypertension without significant proteinuria, third trimester Code(s): O13.9 - Gestational [-induced] hypertension without significant proteinuria, unspecified trimester Status: Acute OB - DS: Summary OB Procedures : NST, PIH Mgmt and Ultrasound OB Procedures Intrapartum: Spontaneous Vag Delivery OB Procedures: : None Peripartum Data Infant Delivery Method: Natural Vaginal Laceration Description: None Episiotomy description: None complications: none 1: Gender: Female Disposition of : home Status at Discharge Functional status at discharge: independent ambulation Overall status at discharge: patient is back to baseline Time Spent with Patient Time attestation: Total time spent providing and/or coordinating discharge services: Exam Const: General: cooperative, comfortable and no acute distress Orientation/consciousness: patient oriented x3 Resp: Effort & Inspection: normal respiratory effort Auscultation: clear to auscultation bilaterally Cardio: Rate: regular rate GI: Inspection: non-distended GI Palp: No abdominal tenderness and Yes Soft to palpation Auscultation: normal bowel sounds : Other: fundus firm Skin: General skin exam: normal color Neuro: General: patient oriented x3 Extrem: General: normal to inspection Psych: Appearance: grossly normal Affect: normal affect Attitude: cooperative DS: Data Data Completed and Pending Pending studies at discharge: Pending at discharge 07/17/25 12:50 Surgical [PTH] Routine Labs on day of discharge: Labs from last 24 hours 07/18/25 04:45 WBC 18.4 H RBC 3.51 L Hgb 9.4 L Hct 31.6 L MCV 90.0 D MCH 26.8 MCHC 29.7 L RDW 14.7 H Plt Count 291 MPV 11.3 H Discharge Plan Discharge Attending physician on discharge: Desi Hogan Discharging Clinician: Desi Hogan Anticipated Discharge Date/Time: 07/19/25 11:00 Patient Disposition: Home Activity: may shower and pelvic rest Diet: regular Patient Instructions: Antibiotic Form Patient Language: Croatian Stand Alone Forms: General Discharge Information Follow-up/Referrals: Desi Hogan MD [Physician, SENIOR WEB ENGINEER] - 1 Week Discharge Medications: New acetaminophen 325 mg Tablet 650 mg PO Q6H PRN (Reason: Mild Pain (1-3) Or Headache) Qty: 60 0RF docusate sodium 100 mg Capsule 100 mg PO BID PRN (Reason: Constipation) Qty: 90 0RF ibuprofen 600 mg Tablet 600 mg PO Q6H PRN (Reason: Cramping) Qty: 40 0RF Continued DHA 200 mg capsule PO Date of admission: 07/16/25 16:16 Primary Care Provider: PHYSICIAN,BUY BOAT OPERATOR Admitting Provider: Desi Hogan Attending physician on admission: Desi Hogan Condition: Stable
[2025-07-19 07:25] VITALS: BP 127/88; PULSE 80; RESP 16; TEMP 37.1; O2SAT 98
[2025-07-19] MEDS: MULTIVIT/MIN/PREN/FOL AC/IRON TABLET 1 TAB PO (08:45)
[2025-07-19] MEDS: DOCUSATE SODIUM 100 MG CAPSULE PO (08:45)
--- NOTE | 2025-07-19 12:35 | PC.NURSE ---
1235. Consulted with mother concerning needs and she shared her ability to independently latch infant optimally without pain. Mother is feeding appropriately for growth of infant and understands stimulating to eat if needed. has had appropriate feedings in the last 24 hours meets the outcomes for weight, output, blood sugar and jaundice at this time. Reinforced understanding of milk production, transition of milk, signs of adequate intake, transition of stool, prevention/relief of engorgement, plugged ducts, mastitis, responsive watching for feeding cues, the different methods of stimulating to breastfeed 1-3 hours after the start of the last feeding, community resources, and when to call a provider using the resource of the feeding sheet along with the mom and baby guide. Mother voiced understanding of the information shared, is confident to continue effectively her at home, when to call for assistance, denies any additional assistance or education at this time. Reported to the Primary RN.
--- NOTE | 2025-07-19 15:00 | PC.NURSE ---
Patient declines MMR vaccine at this time. Education given on risks/benefits and provided print out. Pt states she will probably get it just not ready today.
[2025-07-20 10:08] VITALS: BP 129/85
== END 2025-07-19 15:42 | disposition home or self-care (01) | DRG 560 ==
LOC: ANHLDR 16:20 → ANHOB2 07-17 14:27
PROVIDERS: Admitting Provider Obstetrics & Gynecology; Visit Provider Obstetrics & Gynecology
DX: O13.4 Gestational [pregnancy-induced] hypertension without significant proteinuria, complicating childbirth (principal); O40.3XX0 Polyhydramnios, third trimester, not applicable or unspecified; Z3A.37 37 weeks gestation of pregnancy; Z37.0 Single live birth
CPT/HCPCS: 36415; 80053; 84550; 85025; 85027; 86593; 86850; 86900; 86901; 88307; A9270; J2405; J2590; J2795; J7120

== ENCOUNTER 2025-09-02 17:44 | Outpatient (CLI) | payer OTHER, SELFPAY ==
[2025-09-02 18:25] LABS: Beta HCG Quantitative < 2.39 mIU/ML
== END 2025-09-02 17:45 | disposition home or self-care (01) ==
LOC: ANHLAB 17:45
PROVIDERS: Visit Provider Obstetrics & Gynecology
DX: N92.6 Irregular menstruation, unspecified (principal)
CPT/HCPCS: 36415; 84702